=== PATIENT | female | born 1980 | race Caucasian/White ===

== ENCOUNTER 2017-06-20 13:34 | Emergency (ER) | payer OTHER ==
[2017-06-20] MEDS ORDERED: METOCLOPRAMIDE 5 MG/ML 2 ML VIAL IVP STA (13:53)
[2017-06-20] MEDS ORDERED: KETOROLAC 30 MG/ML 1 ML VIAL IVP STA (13:53)
[2017-06-20] MEDS ORDERED: SODIUM CHLORIDE 0.9% 1,000 ML IV STA (13:53)
[2017-06-20] MEDS ORDERED: diphenhydrAMINE 50 MG/ML 1 ML VIAL IVP STA (13:53)
[2017-06-20] MEDS ORDERED: MAG HYDROX/AL HYDROX/SIMETH 30 ML, HYOSCYAMINE ELIXIR 10 ML, CIMETIDINE HCL 300 MG, LID... PO STA ×4 (13:53)
--- NOTE | 2017-06-20 13:55 | ED ---
General Adult HPI - General Chief complaint: Headache Stated complaint: Headache, heart burn Time Seen by Provider: 06/20/17 13:46 Source: patient, RN notes reviewed Mode of arrival: ambulatory Limitations: no limitations - History of Present Illness Initial comments: Patient is a 37-year-old female who presents emergency room today with multiple complaints. Patient does admit that she woke up the migraine headache approximately 2:30 AM. Patient states is located in the back. Does admit to photosensitivity. Admits to an episode of nausea vomiting. patient states that the symptoms are consistent with her migraine headaches that she's had in the past. She states she's tried Fioricet along with [place] at home with no relief.States she's had increased acid reflux morning as well. Patient denies any recent fever, chills, shortness of breath, chest pain, back pain, abdominal pain, numbness or tingling, dysuria or hematuria, constipation or diarrhea, visual changes, or any other complaints. - Related Data Home Medications Medication Instructions Recorded Confirmed ARIPiprazole [Abilify] 5 mg PO HS 06/20/17 06/20/17 Butalb/APAP/Caff 50-325-40Mg 1 tab PO DAILY PRN 06/20/17 06/20/17 [Fioricet 50-325-40] Dextroamphetamine/Amphetamine 15 mg PO DAILY 06/20/17 06/20/17 [Adderall] HYDROcodone/APAP 10-325MG [[place] 1 tab PO BID PRN 06/20/17 06/20/17 10-325] Ibuprofen [Motrin] 800 mg PO Q8H PRN 06/20/17 06/20/17 Naproxen Sodium [Aleve] 220 mg PO DAILY PRN 06/20/17 06/20/17 buPROPion HCL [Wellbutrin XL] 300 mg PO HS 06/20/17 06/20/17 diphenhydrAMINE HCL [Benadryl] 25 mg PO DAILY PRN 06/20/17 06/20/17 Allergies Allergy/AdvReac Type Severity Reaction Status Date / Time amoxicillin Allergy Anaphylaxis Verified 06/20/17 14:34 Penicillins Allergy Anaphylaxis Verified 06/20/17 14:34 Review of Systems ROS Statement: Those systems with pertinent positive or pertinent negative responses have been documented in the HPI. ROS Other: All systems not noted in ROS Statement are negative. Past Medical History Additional Past Medical History / Comment(s): migraines History of Any Multi-Drug Resistant Organisms: None Reported Past Surgical History: Section Past Psychological History: Anxiety, Depression Smoking Status: Current every day smoker Past Alcohol Use History: Rare Past Drug Use History: None Reported General Exam - General Exam Comments Initial Comments: General: The patient is awake and alert, in no distress, and does not appear acutely ill. Eye: Pupils are equal, round and reactive to light, extra-ocular movements are intact. No nystagmus. There is normal conjunctiva bilaterally. No signs of icterus. Ears, nose, mouth and throat: There are moist mucous membranes and no oral lesions. Neck: The neck is supple, there is no tenderness or JVD. Cardiovascular: There is a regular rate and rhythm. No murmur, rub or gallop is appreciated. Respiratory: Lungs are clear to auscultation, respirations are non-labored, breath sounds are equal. No wheezes, stridor, rales, or rhonchi. Musculoskeletal: Normal ROM, no tenderness. Strength 5/5. Sensation intact. Pulses equal bilaterally 2+. Neurological: A&O x 3. CN II-XII intact, There are no obvious motor or sensory deficits. Coordination appears grossly intact. Speech is normal. Skin: Skin is warm and dry and no rashes or lesions are noted. Psychiatric: Cooperative, appropriate mood & affect, normal judgment. Limitations: no limitations Course Vital Signs 06/20/17 13:42 Temperature 98.1 F Pulse Rate 81 Respiratory 18 Rate Blood Pressure 141/92 O2 Sat by Pulse 98 Oximetry Medical Decision Making - Medical Decision Making patient reexamined at this time shows no signs of distress is feeling better. Will be discharged home. Disposition Clinical Impression: Migraine, Acid reflux Disposition: HOME SELF-CARE Condition: Good Instructions: Migraine Headache (ED) Additional Instructions: Please use medication as discussed. Please follow-up with family doctor in the next 2 days of symptoms have not improved. Please return to emergency room if the symptoms increase or worsen or for any other concerns. Referrals: Anmol Feldman MD [Primary Care Provider] - 1-2 days Time of Disposition: 15:02
[2017-06-20 15:13] VITALS: BP 131/82; PULSE 95; RESP 14; TEMP 98.3
== END 2017-06-20 15:18 | disposition home or self-care (01) ==
LOC: EC 13:34
DX: G43.909 Migraine, unspecified, not intractable, without status migrainosus (principal); K21.9 Gastro-esophageal reflux disease without esophagitis; F41.9 Anxiety disorder, unspecified; F32.9 Major depressive disorder, single episode, unspecified; F17.200 Nicotine dependence, unspecified, uncomplicated; Z79.899 Other long term (current) drug therapy; Z88.0 Allergy status to penicillin
CPT/HCPCS: 99283; 96374; 96375 ×2; 96361; J1200; J2765; J1885

== ENCOUNTER → 2017-08-20 | Outpatient (CLI) | payer OTHER ==
--- NOTE | 2017-08-20 16:20 | XR ---
EXAMINATION TYPE: XR cervical spine comp DATE OF EXAM: 08/20/2017 TECHNIQUE: Frontal, lateral, oblique, swimmers, and open mouth view of the cervical spine are obtaine d. HISTORY: R52 pain COMPARISON: Complete spine March 15, 2015 FINDINGS: The cervical spine is visualized in its entirety from C1 thru the top of T1 level, it rede monstrate straightened alignment without evidence of acute fracture or dislocation. The pre-vertebra l soft tissue appears within normal limits. The C1-C2 articulation is within normal limits on the op en mouth view. Vertebral body heights are maintained. There is persistent mild disc space narrowing with increasing mild anterior spurring C5-C6 level. The overlying soft tissue is unremarkable. The oblique images are within normal limits. IMPRESSION: Increasing degenerative changes C5-C6 level noted.
--- NOTE | 2017-08-20 16:22 | XR ---
EXAMINATION TYPE: XR thoracic spine 2V DATE OF EXAM: 08/20/2017 CLINICAL HISTORY: Mid back pain TECHNIQUE: Frontal, lateral, and swimmer's view of thoracic spine are obtained. COMPARISON: None. FINDINGS: Thoracic spine show stable slight levoconvex scoliotic curvature alignment without evidence of acute fracture or dislocation. Vertebral body heights and disc space heights are preserved. Ther e is mild multilevel anterior spurring. There is stable right lateral moderate spur T5-T6 level. Visu alized ribs are unremarkable bilaterally. IMPRESSION: Overall stable findings, mild multilevel spurring redemonstrated.
--- NOTE | 2017-08-20 16:23 | XR ---
EXAMINATION TYPE: XR lumbosacral spine min 4V DATE OF EXAM: 08/20/2017 CLINICAL HISTORY: Low back pain. TECHNIQUE: Frontal, lateral, and oblique images of the lumbar spine are obtained. COMPARISON: Complete spine 2 views March 15, 2015 FINDINGS: There are 5 lumbar type vertebral bodies redemonstrated. There is transitional L6 type ve rtebra sacralized on the left redemonstrated. Abnormal articulation at this level could cause pain si milar prior. Lateral images show slight grade 1 anterolisthesis of L5 on L6. No acute fracture or dis location is seen. Disc space narrowing L6 S1 level is present. Mild Facet arthropathy lower lumbar le vels is seen. Overlying soft tissue is unremarkable. IMPRESSION: Overall stable findings, transitional-type vertebra and degenerative changes lower lumbar levels redemonstrated.
== END | disposition home or self-care (01) ==
LOC: RADXRMAIN 15:30
PROVIDERS: ATTEND Internal Medicine
DX: M47.812 Spondylosis without myelopathy or radiculopathy, cervical region (principal); M46.04 Spinal enthesopathy, thoracic region; M47.816 Spondylosis without myelopathy or radiculopathy, lumbar region
CPT/HCPCS: 72050; 72070; 72110

== ENCOUNTER → 2017-12-26 | Outpatient (CLI) | payer OTHER ==
--- NOTE | 2017-12-26 19:17 | MR ---
EXAMINATION TYPE: MR lumbar spine wo con DATE OF EXAM: 12/26/2017 COMPARISON: X-ray dated 08/20/2017 HISTORY: Back pain TECHNIQUE: T1 and T2 axial and sagittal images of the lumbar spine are submitted. FINDINGS: There is no abnormal signal seen within the visualized spinal cord or paraspinal soft tissu es. There are 5 lumbar-type vertebrae and a transition L6 type vertebrae sacralized on the left. There is grade 1 anterolisthesis of L5 relative to the L6 transition segment. Degenerative disc disease at th is level noted. A tiny Schmorl's nodes are seen at multiple levels. At L1-2 there is no disc herniation or canal stenosis. No foraminal encroachment At L2-3 there is no disc herniation or canal stenosis. No foraminal encroachment At L3-4 there is no disc herniation or canal stenosis. No foraminal encroachment At L4-5 there is no disc herniation or canal stenosis. No foraminal encroachment. At L5-L6 level there is disc bulging greater laterally left with moderate left foraminal encroachment . Mild effacement of thecal sac. Severe facet arthropathy. Severe facet arthropathy. At the L6-S1 level there is degenerative disc disease. No canal stenosis or obvious foraminal encroac hment. IMPRESSION: 1. There appear to be 5 lumbar vertebral body and a additional 6th transition segment L6 vertebral se gment which is partially sacralized. Correlate with the numbering system utilized on this exam prior to any surgical intervention. 2. Disc bulging greater laterally to left with moderate left foraminal encroachment at the L5-L6 leve l with mild effacement of thecal sac. Grade 1 anterolisthesis likely related to severe facet arthropa thy.
== END | disposition home or self-care (01) ==
LOC: RADMRIMAIN 16:34
PROVIDERS: ATTEND Internal Medicine
DX: M51.26 Other intervertebral disc displacement, lumbar region (principal); M43.16 Spondylolisthesis, lumbar region
CPT/HCPCS: 72148

== ENCOUNTER → 2018-05-12 | Outpatient (CLI) | payer OTHER ==
--- NOTE | 2018-05-12 11:06 | MR ---
EXAMINATION TYPE: MR shoulder RT wo con DATE OF EXAM: 05/12/2018 COMPARISON: None HISTORY: Right shoulder pain TECHNIQUE: Multiplanar, multisequence imaging of the right shoulder is performed without contrast. FINDINGS: Rotator Cuff: There is abnormal increased signal within the rotator cuff, at the level of the inserti on there is discontinuity of the infraspinatus tendon at its insertion compatible with partial full-t hickness tear, tendinopathy, fluid signal is present in the subacromial subdeltoid bursa Acromioclavicular Joint: Arthropathy causes some minimal mass effect on the musculotendinous junction of supraspinatus Glenohumeral Joint: Maintained Labrum: The labrum appears grossly intact given limitation of non-arthrogram study. Biceps Tendon: The long head of biceps is in normal location within bicipital groove. Bone marrow signal: Small pseudocysts present in the humeral head Other: No additional significant abnormality is appreciated. IMPRESSION: Partial full-thickness tear the rotator cuff. Additional findings above.
== END | disposition home or self-care (01) ==
LOC: RADMRIMAIN 09:07
PROVIDERS: ATTEND Internal Medicine
DX: M75.111 Incomplete rotator cuff tear or rupture of right shoulder, not specified as traumatic (principal); M19.011 Primary osteoarthritis, right shoulder; M75.81 Other shoulder lesions, right shoulder

== ENCOUNTER → 2018-05-14 | Outpatient (CLI) | payer OTHER ==
--- NOTE | 2018-05-15 14:43 | MR ---
MR bilateral hips HISTORY: Bilateral hip pain Multiplanar multisequence imaging obtained through the pelvis with small [id number] images obtaine d through the left hip and right hip Lumbar MRI 12/29/2017 Right hip shows a small joint effusion. Articular cartilage signal is maintained. There is no signifi cant hypertrophic change. No evident labral tear. There is some increased signal at the insertion of the gluteus medius tendon on the greater trochanter suggestive of partial tear. Fluid signal is also present at the origin of the hamstring conjoined tendon suggestive of strain or partial tear. Increas ed signal is present along the quadratus femoris muscle on T2-weighted sequences which could be indic ative of ischiofemoral impingement. Left hip shows some increased signal along the origin of the conjoined tendon of the hamstring muscul ature suggestive of possible partial tear or strain. There is a small effusion. Articular cartilage s ignal is maintained. There is some increased signal on T2-weighted sequences along the quadratus femo ris muscle suggesting ischiofemoral impingement. Gluteus medius tendon shows a more normal appearance on the left. Uterus and adnexal structures are remarkable for multiple follicles within the ovaries. No significan t free fluid in pelvis. Suspect there is a synovial cyst towards the lumbosacral junction on the righ t, axial image 26 of T2 fat-suppressed images measuring approximately 9 to 10 mm showing some mass ef fect on the lateral aspect of the thecal sac, similar findings noted on lumbar MRI. IMPRESSION: Correlate for ischial femoral impingement as described bilaterally. Findings suggest part ial tear or strain at the origins of the hamstring musculature, right gluteus medius tendon. Degenera tive disc disease and facet arthropathy, synovial cyst shows some possible mass effect on the thecal sac, similar findings seen on prior lumbar MRI.
== END | disposition home or self-care (01) ==
LOC: RADMRIMAIN 13:19
PROVIDERS: ATTEND Internal Medicine
DX: M25.852 Other specified joint disorders, left hip (principal); M25.851 Other specified joint disorders, right hip

== ENCOUNTER 2018-05-18 08:47 | Emergency (ER) | payer OTHER ==
[2018-05-18 08:56] VITALS: RESP 18
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
--- NOTE | 2018-05-18 11:30 | XR ---
EXAMINATION TYPE: XR chest 2V, XR ribs RT DATE OF EXAM: 05/18/2018 COMPARISON: NONE HISTORY: Chest pain TECHNIQUE: Frontal and lateral views of the chest are obtained. 4 views of the right-sided ribs are also submitted. FINDINGS: There is no focal air space opacity. No evidence for pneumothorax. No pleural effusion. The cardiac silhouette size is within normal limits. The osseous structures are grossly intact. Right-sided ribs are grossly intact. IMPRESSION: 1. No acute cardiopulmonary process.
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
[2018-05-18 12:05] VITALS: BP 149/98; PULSE 89; TEMP 97.1
== END 2018-05-18 12:04 | disposition home or self-care (01) ==
LOC: EC 08:47
DX: S51.012A Laceration without foreign body of left elbow, initial encounter (principal); S20.211A Contusion of right front wall of thorax, initial encounter; S60.222A Contusion of left hand, initial encounter; S50.11XA Contusion of right forearm, initial encounter; S00.81XA Abrasion of other part of head, initial encounter; S80.212A Abrasion, left knee, initial encounter; F41.9 Anxiety disorder, unspecified; F32.9 Major depressive disorder, single episode, unspecified; Z79.899 Other long term (current) drug therapy; Z88.0 Allergy status to penicillin; V53.5XXA Driver of pick-up truck or van injured in collision with car, pick-up truck or van in traffic accident, initial encounter
CPT/HCPCS: 70450; 71046; 72125; 99284

== ENCOUNTER 2018-05-25 10:19 | Emergency (ER) | payer OTHER ==
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
--- NOTE | 2018-05-25 11:10 | XR ---
EXAMINATION TYPE: XR ribs RT w pa chest xray DATE OF EXAM: 05/18/2018 COMPARISON: NONE TECHNIQUE: PA and lateral views submitted. HISTORY: Pain FINDINGS: The lungs are clear and there is no pneumothorax, pleural effusion, or focal pneumonia. No evidence of acute displaced rib fracture. IMPRESSION: 1. No acute process.
[2018-05-25 11:23] VITALS: BP 148/95; PULSE 82; RESP 20; TEMP 98.3
== END 2018-05-25 12:07 | disposition home or self-care (01) ==
LOC: EC 10:19
DX: S20.211D Contusion of right front wall of thorax, subsequent encounter (principal); F32.9 Major depressive disorder, single episode, unspecified; F41.9 Anxiety disorder, unspecified; F17.200 Nicotine dependence, unspecified, uncomplicated; Z79.899 Other long term (current) drug therapy; Z88.0 Allergy status to penicillin; V49.9XXD Car occupant (driver) (passenger) injured in unspecified traffic accident, subsequent encounter
CPT/HCPCS: 99284

== ENCOUNTER 2019-02-06 09:59 | Observation (INO) | payer OTHER ==
[2019-02-06] MEDS ORDERED: ACETAMINOPHEN TAB 500 MG TAB PO STA (10:47)
--- NOTE | 2019-02-06 10:51 | ED ---
General Adult HPI - General Chief complaint: Extremity Problem,Nontraumatic Stated complaint: Leg redness Time Seen by Provider: 02/06/19 10:20 Source: patient, RN notes reviewed Mode of arrival: ambulatory Limitations: no limitations - History of Present Illness Initial comments: Patient is a pleasant 38-year-old female presenting to the emergency Department with complaints of left leg redness. Patient noticed symptoms just yesterday. Patient has been fatigued for the past couple of days. Patient did not notice any fevers. No history of similar symptoms previously. Patient states 3 days ago she did have some discomfort of her right anterior chest. This has resolved and is not present at this time. No dyspnea at any time. No significant cough. Patient does complain of headache. Patient denies any calf pain or leg swelling. - Related Data Home Medications Medication Instructions Recorded Confirmed ARIPiprazole [Abilify] 5 mg PO HS 06/20/17 02/06/19 HYDROcodone/APAP 10-325MG [[place] 1 tab PO TID PRN 06/20/17 02/06/19 10-325] Ibuprofen [Motrin] 800 mg PO Q8H PRN 06/20/17 02/06/19 buPROPion HCL [Wellbutrin XL] 300 mg PO HS 06/20/17 02/06/19 Butalb/APAP/Caff 50-325-40Mg 1 tab PO Q4H PRN 02/06/19 02/06/19 [Fioricet 50-325-40] Dextroamphetamine/Amphetamine 20 mg PO QAM 02/06/19 02/06/19 [Adderall Xr] Allergies Allergy/AdvReac Type Severity Reaction Status Date / Time amoxicillin Allergy Anaphylaxis Verified 02/06/19 10:29 Penicillins Allergy Anaphylaxis Verified 02/06/19 10:29 Review of Systems ROS Statement: Those systems with pertinent positive or pertinent negative responses have been documented in the HPI. ROS Other: All systems not noted in ROS Statement are negative. Constitutional: Reports: as per HPI Eyes: Denies: eye pain ENT: Denies: ear pain Respiratory: Denies: cough, dyspnea Cardiovascular: Reports: as per HPI Endocrine: Reports: fatigue Gastrointestinal: Denies: abdominal pain Genitourinary: Denies: dysuria Musculoskeletal: Denies: back pain Skin: Reports: as per HPI, rash Neurological: Reports: headache. Denies: confusion Past Medical History Additional Past Medical History / Comment(s): migraines History of Any Multi-Drug Resistant Organisms: None Reported Past Surgical History: Section Past Psychological History: Anxiety, Depression Smoking Status: Current every day smoker Past Alcohol Use History: Occasional Past Drug Use History: Marijuana General Exam Limitations: no limitations General appearance: alert, in no apparent distress Head exam: Present: atraumatic Eye exam: Present: normal appearance, PERRL, EOMI ENT exam: Present: normal oropharynx Neck exam: Present: normal inspection. Absent: tenderness, meningismus Respiratory exam: Present: normal lung sounds bilaterally. Absent: chest wall tenderness Cardiovascular Exam: Present: regular rate, normal rhythm Expanded Peripheral pulses: 2+: Dorsalis Pedis (R), Dorsalis Pedis (L) GI/Abdominal exam: Present: soft. Absent: tenderness Extremities exam: Absent: pedal edema, calf tenderness Neurological exam: Present: alert Psychiatric exam: Present: normal affect, normal mood Skin exam: Present: other (Patient does have skin breakdown left lateral foot near the heel. There is erythema of the entire dorsal foot and anterior brooks extending up to the knee.) Course Vital Signs 02/06/19 02/06/19 02/06/19 10:03 10:42 11:00 Temperature 101.3 F H Pulse Rate 114 H 113 H Respiratory 18 16 Rate Blood Pressure 118/83 134/90 134/90 O2 Sat by Pulse 100 99 97 Oximetry 02/06/19 02/06/19 02/06/19 11:30 11:51 12:00 Temperature 100.2 F H Pulse Rate 108 H 109 H Respiratory 18 18 Rate Blood Pressure 136/90 121/84 O2 Sat by Pulse 97 96 Oximetry 02/06/19 12:30 Temperature Pulse Rate 105 H Respiratory 16 Rate Blood Pressure 127/89 O2 Sat by Pulse 98 Oximetry EKG Findings - EKG Comments: EKG Findings:: Sinus tachycardia 114. DC 116. QRS 78. QT 326. QTc 446. Normal axis. Normal QRS. No acute ST change. Medical Decision Making - Medical Decision Making Patient reevaluated and resting comfortably in bed. Patient and family updated on results and plan. Case was discussed in detail with Dr. Hwang, covering for Dr. Jefferson mcrae, who will admit. - Lab Data Result diagrams: 02/06/19 10:59 02/06/19 10:59 Lab Results 02/06/19 02/06/19 02/06/19 Range/Units 10:59 10:59 10:59 WBC 16.1 H (3.8-10.6) k/uL RBC 5.15 (3.80-5.40) m/uL Hgb 15.0 (11.4-16.0) gm/dL Hct 43.4 (34.0-46.0) % MCV 84.2 (80.0-100.0) fL MCH 29.1 (25.0-35.0) pg MCHC 34.6 (31.0-37.0) g/dL RDW 15.8 H (11.5-15.5) % Plt Count 151 (150-450) k/uL Neutrophils % 90 % Lymphocytes % 5 % Monocytes % 2 % Eosinophils % 2 % Basophils % 0 % Neutrophils # 14.6 H (1.3-7.7) k/uL Lymphocytes # 0.8 L (1.0-4.8) k/uL Monocytes # 0.4 (0-1.0) k/uL Eosinophils # 0.3 (0-0.7) k/uL Basophils # 0.1 (0-0.2) k/uL PT (9.0-12.0) sec INR (<1.2) APTT (22.0-30.0) sec Sodium 137 (137-145) mmol/L Potassium 3.6 (3.5-5.1) mmol/L Chloride 103 (98-107) mmol/L Carbon Dioxide 22 (22-30) mmol/L Anion Gap 12 mmol/L BUN 10 (7-17) mg/dL Creatinine 0.94 (0.52-1.04) mg/dL Est GFR (CKD-EPI)AfAm 89 (>60 ml/min/1.73 sqM) Est GFR (CKD-EPI)NonAf 77 (>60 ml/min/1.73 sqM) Glucose 105 H (74-99) mg/dL Plasma Lactic Acid Sonny 1.4 (0.7-2.0) mmol/L Calcium 8.9 (8.4-10.2) mg/dL Total Bilirubin 1.1 (0.2-1.3) mg/dL AST 27 (14-36) U/L ALT 41 (9-52) U/L Alkaline Phosphatase 80 (38-126) U/L Creatine Kinase 56 (30-135) U/L Troponin I (0.000-0.034) ng/mL Total Protein 6.9 (6.3-8.2) g/dL Albumin 3.9 (3.5-5.0) g/dL 02/06/19 02/06/19 Range/Units 10:59 10:59 WBC (3.8-10.6) k/uL RBC (3.80-5.40) m/uL Hgb (11.4-16.0) gm/dL Hct (34.0-46.0) % MCV (80.0-100.0) fL MCH (25.0-35.0) pg MCHC (31.0-37.0) g/dL RDW (11.5-15.5) % Plt Count (150-450) k/uL Neutrophils % % Lymphocytes % % Monocytes % % Eosinophils % % Basophils % % Neutrophils # (1.3-7.7) k/uL Lymphocytes # (1.0-4.8) k/uL Monocytes # (0-1.0) k/uL Eosinophils # (0-0.7) k/uL Basophils # (0-0.2) k/uL PT 11.3 (9.0-12.0) sec INR 1.1 (<1.2) APTT 30.3 H (22.0-30.0) sec Sodium (137-145) mmol/L Potassium (3.5-5.1) mmol/L Chloride (98-107) mmol/L Carbon Dioxide (22-30) mmol/L Anion Gap mmol/L BUN (7-17) mg/dL Creatinine (0.52-1.04) mg/dL Est GFR (CKD-EPI)AfAm (>60 ml/min/1.73 sqM) Est GFR (CKD-EPI)NonAf (>60 ml/min/1.73 sqM) Glucose (74-99) mg/dL Plasma Lactic Acid Sonny (0.7-2.0) mmol/L Calcium (8.4-10.2) mg/dL Total Bilirubin (0.2-1.3) mg/dL AST (14-36) U/L ALT (9-52) U/L Alkaline Phosphatase (38-126) U/L Creatine Kinase (30-135) U/L Troponin I <0.012 (0.000-0.034) ng/mL Total Protein (6.3-8.2) g/dL Albumin (3.5-5.0) g/dL - Radiology Data Radiology results: image reviewed (Chest x-ray shows no acute process. X-ray of the left tib-fib and left foot did not reveal no acute process.) Critical Care Time Critical Care Time: Yes Total Critical Care Time: 33 Disposition Clinical Impression: Sepsis, Cellulitis Disposition: ADMITTED IP TO THIS HOSP Is patient prescribed a controlled substance at d/c from ED?: No Referrals: Anmol Feldman MD [Primary Care Provider] - 1-2 days Decision Time: 12:59
[2019-02-06] MEDS: SODIUM CHLORIDE 0.9% 500 ML 500 ML IV SCH ×4 (10:55→13:08)
[2019-02-06 11:26] LABS: Basophils # (A) 0.1 k/uL (0-0.2); Basophils % (A) 0 %; Eosinophils # (A) 0.3 k/uL (0-0.7); Eosinophils % (A) 2 %; HCT 43.4 % (34.0-46.0); Lymphocytes # (A) 0.8 k/uL (1.0-4.8); Lymphocytes % (A) 5 %; MCH 29.1 pg (25.0-35.0); MCHC 34.6 g/dL (31.0-37.0); MCV 84.2 fL (80.0-100.0); Mean Platelet Volume 8.9; Monocytes # (A) 0.4 k/uL (0-1.0); Monocytes % (A) 2 %; Neutrophils # (A) 14.6 k/uL (1.3-7.7); Neutrophils % (A) 90 %; Platelet Count 151 k/uL (150-450); RBC 5.15 m/uL (3.80-5.40); RDW 15.8 % (11.5-15.5); WBC 16.1 k/uL (3.8-10.6)
--- NOTE | 2019-02-06 11:28 | XR ---
EXAMINATION TYPE: XR chest 2V DATE OF EXAM: 02/06/2019 HISTORY: Fever. REFERENCE: Previous study dated 05/25/2018. FINDINGS: Lungs remain clear. Pleural spaces are clear. The heart is not enlarged. IMPRESSION: NO ACUTE INTRATHORACIC ABNORMALITY.
[2019-02-06 11:33] LABS: Albumin 3.9 g/dL (3.5-5.0); Total Protein 6.9 g/dL (6.3-8.2)
[2019-02-06 11:34] LABS: Calcium 8.9 mg/dL (8.4-10.2); Potassium 3.6 mmol/L (3.5-5.1); Total Bilirubin 1.1 mg/dL (0.2-1.3)
[2019-02-06 11:56] LABS: INR 1.1 (<1.2)
[2019-02-06 11:57] LABS: Partial Thromboplastin Time 30.3 sec (22.0-30.0); Prothrombin Time 11.3 sec (9.0-12.0)
--- NOTE | 2019-02-06 12:53 | XR ---
EXAMINATION TYPE: XR foot complete LT , 3 VIEWS DATE OF EXAM ORDERED: 02/06/2019 HISTORY: Left lower extremity swelling. COMPARISON: None. FINDINGS: There is a small calcaneal spur. There is a mild hallux valgus deformity. No fracture, dis location or other acute osseous lesion is seen. IMPRESSION: 1. NO ACUTE OSSEOUS LESION. 2. DEGENERATIVE CHANGE.
--- NOTE | 2019-02-06 12:53 | XR ---
EXAMINATION TYPE: XR tibia fibula LT , 4 VIEWS DATE OF EXAM ORDERED: 02/06/2019 HISTORY: Pain. COMPARISON: None. FINDINGS: No fracture, dislocation or other acute osseous lesion is seen. Note is made of a small, p lantar calcaneal spur. IMPRESSION: NO ACUTE OSSEOUS LESION.
[2019-02-06] MEDS ORDERED: VANCOMYCIN IV PER PHARMACY 1 EACH MISC MISCELLANE PRN (12:59)
[2019-02-06] MEDS ORDERED: CLINDAMYCIN 600 MG in DEXTROSE 5% IN WATER 50 ML IVPB STA ×2 (12:59)
[2019-02-06] MEDS ORDERED: ACETAMINOPHEN TAB 325 MG TAB PO PRN (13:02)
[2019-02-06] MEDS ORDERED: NALOXONE 0.4 MG/ML 1 ML VIAL IV PRN (13:02)
[2019-02-06] MEDS ORDERED: VANCOMYCIN 2,000 MG in SODIUM CHLORIDE 0.9% 500 ML 500 ML IVPB STA (13:04)
[2019-02-06 13:15] LABS: Appearance,Urine Clear (Clear); Bacteria,Urine Moderate /hpf; Bilirubin,Urine Negative (Negative); Blood,Urine Trace (Negative); Color,Urine Yellow; Glucose,Urine (UA) Negative (Negative); Ketones,Urine Negative (Negative); Leukocyte Esterase,Urine Negative (Negative); Mucus,Urine Rare /hpf; Nitrite,Urine Negative (Negative); Protein,Urine Trace (Negative); RBC,Urine 2 /hpf (0-5); Specific Gravity,Urine 1.011 (1.001-1.035); Squamous Epithelial Cell,Urine 3 /hpf (0-4); Urobilinogen,Urine <2.0 mg/dL (<2.0); WBC,Urine 1 /hpf (0-5)
[2019-02-06] MEDS: SODIUM CHLORIDE 0.9% 1,000 ML IV SCH ×2 (13:29→21:03)
--- NOTE | 2019-02-06 15:01 | P.HPIM ---
History of Present Illness H&P Date: 02/06/19 Chief Complaint: Left leg redness Ma. Rouse is a 38-year-old female with a past medical history of migraine headaches, depression with anxiety coming into the hospital with a chief complaint of left leg redness. Patient states that since evening she has been feeling fatigued and trying to sleep it off. But yesterday she started to have fevers and also noticed that the left leg redness has been getting worse and came into the hospital. Patient also complains of some retrosternal chest pain that has resolved by itself at this point of time. Patient denies having any cough or difficulty in breathing. She denies having any recent travel. She denies having any calf pain. Patient does have cracks in her feet. She states that she has athletes foot. She has history of chronic migraines and states that the fioricet that she is taking is not helping her for the headaches. In the emergency department patient was found to have tachycardia tachypnea with a fever. She had a chest x-ray done that was negative for any acute osseous process. X-ray of the left tibia and fibula no fracture dislocation. Patient has labs drawn which was showing elevated white count. She has been started on vancomycin and clindamycin and admitted to the hospital for further management. Review of Systems REVIEW OF SYSTEMS: PSYCH: Anxiety and depression and takes medications NEURO:No c/o weakness of the extremties, No facial droop, No speech abnormalities. VASCULAR: Peripheral nervous system within the normal limits no edema HEMATOLOGIC: No history of easy bleeding and bruising . No recent infections . RESPIRATORY: No cough, No SOB, No chest discomfort. IMMUNE: No infections INTEGUMENT: no rashes OPHTHALMOLOGIC: No blurry vision and no eye discharge : No dysuria or hematuria [employer]: No bleeding PV CARDIAC: No chest pain , shortness of breath , paroxysmal nocturnal dyspnea MUSCULOSKELETAL : Fatigue. No joint swelling. GI: No abdominal pain, Nausea or vomiting. No constipation or diarrhea. Past Medical History Additional Past Medical History / Comment(s): migraines History of Any Multi-Drug Resistant Organisms: None Reported Past Surgical History: Section Past Psychological History: Anxiety, Depression Smoking Status: Current every day smoker Past Alcohol Use History: Occasional Past Drug Use History: Marijuana Medications and Allergies Home Medications Medication Instructions Recorded Confirmed Type ARIPiprazole [Abilify] 5 mg PO HS 06/20/17 02/06/19 History HYDROcodone/APAP 10-325MG [[place] 1 tab PO TID PRN 06/20/17 02/06/19 History 10-325] Ibuprofen [Motrin] 800 mg PO Q8H PRN 06/20/17 02/06/19 History buPROPion HCL [Wellbutrin XL] 300 mg PO HS 06/20/17 02/06/19 History Butalb/APAP/Caff 50-325-40Mg 1 tab PO Q4H PRN 02/06/19 02/06/19 History [Fioricet 50-325-40] Dextroamphetamine/Amphetamine 20 mg PO QAM 02/06/19 02/06/19 History [Adderall Xr] Allergies Allergy/AdvReac Type Severity Reaction Status Date / Time amoxicillin Allergy Anaphylaxis Verified 02/06/19 10:29 Penicillins Allergy Anaphylaxis Verified 02/06/19 10:29 Physical Exam Vitals: Vital Signs Temp Pulse Pulse Resp BP BP Pulse Ox 02/06/19 14:24 97.9 F 100 18 105/74 98 02/06/19 13:30 99 F 87 18 123/91 97 02/06/19 12:30 105 H 16 127/89 98 02/06/19 12:00 109 H 18 121/84 96 02/06/19 11:51 100.2 F H 02/06/19 11:30 108 H 18 136/90 97 02/06/19 11:00 113 H 16 134/90 97 02/06/19 10:42 134/90 99 02/06/19 10:03 101.3 F H 114 H 18 118/83 100 Intake and Output 02/05/19 02/06/19 02/06/19 22:59 06:59 14:59 Other: Weight 108.862 kg GEN. APPEARANCE: alert, in no apparent distress HEAD EXAM: atraumatic, normocephalic, normal inspection EYE EXAM: normal appearance, PERRL, EOMI. Absent: scleral icterus, conjunctival injection, periorbital swelling ENT EXAM: normal exam, mucous membranes moist NECK EXAM: normal inspection. Absent: tenderness, meningismus, full ROM, lymphadenopathy RESPIRATORY EXAM: normal lung sounds bilaterally. Absent: respiratory distress, wheezes, rales, rhonchi, stridor CARDIOVASCULAR EXAM: regular rate, tachycardia, normal heart sounds. Absent: systolic murmur, diastolic murmur, rubs, gallop, clicks GI/ABDOMINAL EXAM: soft, normal bowel sounds. Absent: distended, tenderness, guarding, rebound, rigid EXTREMITIES EXAM: Left lower extremity - skin breakdown on the left lateral foot. Area of redness on the dorsal surface of the foot and the anterior brooks- marked with ink NEUROLOGICAL EXAM: alert, oriented X3, no focal deficits PSYCHIATRIC EXAM: normal affect, normal mood SKIN EXAM: warm, dry, intact, normal color. Absent: rash Results CBC & Chem 7: 02/06/19 10:59 02/06/19 10:59 Labs: Abnormal Lab Results - Last 24 Hours (Table) 02/06/19 02/06/19 02/06/19 Range/Units 10:59 10:59 10:59 WBC 16.1 H (3.8-10.6) k/uL RDW 15.8 H (11.5-15.5) % Neutrophils # 14.6 H (1.3-7.7) k/uL Lymphocytes # 0.8 L (1.0-4.8) k/uL APTT 30.3 H (22.0-30.0) sec Glucose 105 H (74-99) mg/dL Urine Protein (Negative) Urine Blood (Negative) Urine Bacteria (None) /hpf Urine Mucus (None) /hpf 02/06/19 Range/Units 13:04 WBC (3.8-10.6) k/uL RDW (11.5-15.5) % Neutrophils # (1.3-7.7) k/uL Lymphocytes # (1.0-4.8) k/uL APTT (22.0-30.0) sec Glucose (74-99) mg/dL Urine Protein Trace H (Negative) Urine Blood Trace H (Negative) Urine Bacteria Moderate H (None) /hpf Urine Mucus Rare H (None) /hpf Thrombosis Risk Factor Assmnt - Choose All That Apply Any of the Below Risk Factors Present?: No Other Risk Factors: No Other congenital or acquired thrombophilia - If yes, enter type in comment: No Thrombosis Risk Factor Assessment Level: Very Low Risk Assessment and Plan Assessment: ASSESSMENT Sepsis secondary to left leg cellulitis Left leg cellulitis Anxiety with depression Migraine headaches PLAN: Patient has been started on vancomycin and clindamycin as she is ALLERGIC to penicillins. Blood cultures have been obtained prior to antibiotic therapy. Motrin for her headaches. Continue with IV fluids. Further recommendations to follow depending on the progress of the patient.
[2019-02-06] MEDS: IBUPROFEN 800 MG TAB PO PRN (16:49)
[2019-02-06] MEDS: ARIPiprazole 5 MG TAB PO SCH (20:07)
[2019-02-06] MEDS: buPROPion XL 300 MG TAB.ER.24H PO SCH (20:07)
[2019-02-06] MEDS: CLINDAMYCIN 600 MG in DEXTROSE 5% IN WATER 50 ML IVPB SCH ×2 (21:03)
[2019-02-06] MEDS: ENOXAPARIN 40 MG/0.4 ML SYRINGE SQ SCH (23:57)
[2019-02-07] MEDS ORDERED: KETOROLAC 30 MG/ML 1 ML VIAL IVP STA (00:44)
[2019-02-07] MEDS ORDERED: DEXAMETHASONE SOD PHOSPHATE 10 MG/ML 1 ML VIAL IV STA (00:45)
[2019-02-07] MEDS ORDERED: diphenhydrAMINE 50 MG/ML 1 ML VIAL IVP STA (00:45)
[2019-02-07] MEDS: CLINDAMYCIN 600 MG in DEXTROSE 5% IN WATER 50 ML IVPB SCH ×8 (00:54→20:27)
[2019-02-07] MEDS: ENOXAPARIN 40 MG/0.4 ML SYRINGE SQ SCH ×2 (00:59→20:32)
[2019-02-07] MEDS: VANCOMYCIN 2,000 MG in SODIUM CHLORIDE 0.9% 500 ML 500 ML IVPB SCH ×2 (02:12→14:25)
[2019-02-07] MEDS: SODIUM CHLORIDE 0.9% 1,000 ML IV SCH ×2 (05:20→13:13)
[2019-02-07] MEDS: IBUPROFEN 800 MG TAB PO PRN (08:12)
[2019-02-07 08:26] LABS: Basophils % (A) 0 %; Eosinophils % (A) 0 %; HCT 43.3 % (34.0-46.0); Lymphocytes # (A) 0.4 k/uL (1.0-4.8); Lymphocytes % (A) 3 %; MCH 27.9 pg (25.0-35.0); MCHC 32.3 g/dL (31.0-37.0); MCV 86.4 fL (80.0-100.0); Mean Platelet Volume 8.2; Monocytes # (A) 0.2 k/uL (0-1.0); Monocytes % (A) 1 %; Neutrophils # (A) 9.8 k/uL (1.3-7.7); Neutrophils % (A) 94 %; Platelet Count 153 k/uL (150-450); RBC 5.02 m/uL (3.80-5.40); RDW 13.9 % (11.5-15.5); WBC 10.4 k/uL (3.8-10.6)
[2019-02-07 08:36] LABS: African American GFR (CKD) >90 (>60 ml/min/1.73 sqM); Anion Gap 11 mmol/L; Blood Urea Nitrogen 13 mg/dL (7-17); Calcium 8.8 mg/dL (8.4-10.2); Carbon Dioxide 21 mmol/L (22-30); Chloride 108 mmol/L (98-107); Glucose 203 mg/dL (74-99); Potassium 4.1 mmol/L (3.5-5.1); Sodium 140 mmol/L (137-145)
[2019-02-07] MEDS: Dextroamphetamine/Amphetamine [Adderall Xr] PO SCH (09:50)
--- NOTE | 2019-02-07 13:15 | P.PN ---
Subjective Progress Note Date: 02/07/19 Principal diagnosis: Sepsis due to left lower extremity cellulitis Ms. Rouse is a 38-year-old female with a past medical history of migraine headaches and depression with anxiety coming in for left leg redness. Patient was found to have tachycardia and tachypnea and a white count. She was septic at the time of admission. She is currently being treated for left lower extremi ty cellulitis. On 02/07/2019- patient is comfortably lying in bed. She reports that her redness and swelling has improved. Patient denies any calf tenderness. Her headache has improved and she feels much better today. Patient denies having any fevers or chills. No chest pain or cough or difficulty in breathing. No abdominal pain nausea vomiting or diarrhea. No dysuria or hematuria. Patient's medications and labs have been reviewed. Active Medications Acetaminophen (Tylenol Tab) 650 mg PO Q6HR PRN PRN Reason: Mild Pain or Fever > 100.5 Aripiprazole (Abilify) 5 mg PO [facility] Last Admin: 02/06/19 20:07 Dose: 5 mg Documented by: Bupropion HCl (Wellbutrin Xl) 300 mg PO [facility] Last Admin: 02/06/19 20:07 Dose: 300 mg Documented by: Enoxaparin Sodium (Lovenox) 40 mg SQ Q24H [facility] [place] Last Admin: 02/07/19 00:59 Dose: Not Given Documented by: Clindamycin Phosphate 600 mg/ (Dextrose/Water) 54 mls @ 50 mls/hr IVPB Q6H [facility] [place] Last Admin: 02/07/19 13:08 Dose: 50 mls/hr Documented by: Sodium Chloride (Saline 0.9%) 1,000 mls @ 10 mls/hr IV .Q24H [facility] [place] Last Admin: 02/07/19 05:20 Dose: 125 mls/hr Documented by: Vancomycin HCl 2,000 mg/ (Sodium Chloride) 500 mls @ 167 mls/hr IVPB Q12H [facility] [place] Last Admin: 02/07/19 02:12 Dose: 167 mls/hr Documented by: Ibuprofen (Motrin) 800 mg PO Q8H PRN PRN Reason: Pain Last Admin: 02/07/19 08:12 Dose: 800 mg Documented by: Miscellaneous Information (Vancomycin Trough Due) 0 each MISCELLANE DIRECTED ONE Stop: 02/08/19 13:01 Naloxone HCl (Narcan) 0.2 mg IV Q2M PRN PRN Reason: Opioid Reversal Dextroamphetamine/Amphetamine [ Adderall Xr] 20 mg PO QAM [facility] [place] Last Admin: 02/07/19 09:50 Dose: Not Given Documented by: Objective - Vital Signs Vital signs: Vital Signs Temp 98.6 F 02/07/19 05:30 Pulse 98 02/07/19 05:30 Resp 18 02/07/19 05:30 BP 124/73 02/07/19 05:30 Pulse Ox 99 02/07/19 05:30 Intake & Output 02/06/19 02/07/19 02/07/19 18:59 06:59 18:59 Intake Total 300 Balance 300 Weight 108.862 kg Intake: Oral 300 Other: Voiding Method Toilet # Voids 2 - Exam GEN. APPEARANCE: alert, in no apparent distress RESPIRATORY EXAM: Bilateral breath sounds are positive. No wheeze or crackles. CARDIOVASCULAR EXAM: S1 and S2 heard. GI/ABDOMINAL EXAM: Abdomen is soft nontender. Normal bowel sounds. EXTREMITIES EXAM: Left lower extremity -Area of redness on the dorsal surface of the foot and the anterior brooks - reduced compared to yesterday NEUROLOGICAL EXAM: alert, oriented X3, no focal deficits PSYCHIATRIC EXAM: normal affect, normal mood - Labs CBC & Chem 7: 02/07/19 07:44 02/07/19 07:44 Labs: Abnormal Lab Results - Last 24 Hours (Table) 02/06/19 02/07/19 02/07/19 Range/Units 13:04 07:44 07:44 Neutrophils # 9.8 H (1.3-7.7) k/uL Lymphocytes # 0.4 L (1.0-4.8) k/uL Chloride 108 H (98-107) mmol/L Carbon Dioxide 21 L (22-30) mmol/L Glucose 203 H (74-99) mg/dL Urine Protein Trace H (Negative) Urine Blood Trace H (Negative) Urine Bacteria Moderate H (None) /hpf Urine Mucus Rare H (None) /hpf Microbiology - Last 24 Hours (Table) 02/06/19 13:04 Urine Culture - Preliminary Urine,Voided Assessment and Plan Assessment: ASSESSMENT Sepsis secondary to left leg cellulitis Left leg cellulitis Anxiety with depression Migraine headaches PLAN: Patient will be continued on vancomycin and clindamycin as she is ALLERGIC to penicillins. Blood cultures have been obtained prior to antibiotic therapy- pending. Continue with IV fluids. Patient states that she wants to go home to take care of her kids. Explained to her that she was septic at the time of admission and we are still waiting for the blood cultures to be back. She understands the situation and is willing to stay overnight. We will follow up on the blood cultures and possible discharge tomorrow.Further recommendations to follow depending on the progress of the patient.
[2019-02-07 14:22] VITALS: RESP 16
[2019-02-07] MEDS ORDERED: FLUCONAZOLE 100 MG TAB PO ONE (14:27)
[2019-02-07] MEDS: buPROPion XL 300 MG TAB.ER.24H PO SCH (20:28)
[2019-02-07] MEDS: ARIPiprazole 5 MG TAB PO SCH (20:28)
[2019-02-08] MEDS: CLINDAMYCIN 600 MG in DEXTROSE 5% IN WATER 50 ML IVPB SCH ×4 (01:19→07:40)
[2019-02-08] MEDS: IBUPROFEN 800 MG TAB PO PRN (01:28)
[2019-02-08] MEDS: VANCOMYCIN 2,000 MG in SODIUM CHLORIDE 0.9% 500 ML 500 ML IVPB SCH (02:45)
[2019-02-08 05:19] VITALS: BP 114/76; PULSE 92; TEMP 98.2
[2019-02-08] MEDS: Dextroamphetamine/Amphetamine [Adderall Xr] PO SCH (07:41)
[2019-02-08 09:52] LABS: African American GFR (CKD) >90 (>60 ml/min/1.73 sqM); Anion Gap 11 mmol/L; Blood Urea Nitrogen 16 mg/dL (7-17); Calcium 8.8 mg/dL (8.4-10.2); Carbon Dioxide 22 mmol/L (22-30); Chloride 108 mmol/L (98-107); Glucose 244 mg/dL (74-99); Potassium 3.9 mmol/L (3.5-5.1); Sodium 141 mmol/L (137-145)
[2019-02-08 10:46] LABS: HCT 36.9 % (34.0-46.0); MCH 28.2 pg (25.0-35.0); MCHC 32.5 g/dL (31.0-37.0); MCV 86.9 fL (80.0-100.0); Mean Platelet Volume 9.2; Platelet Count 179 k/uL (150-450); RBC 4.25 m/uL (3.80-5.40); RDW 14.1 % (11.5-15.5); WBC 13.3 k/uL (3.8-10.6)
[2019-02-08] MEDS ORDERED: CALCIUM CARBONATE 500 MG CHEWABLE PO PRN (10:54)
--- NOTE | 2019-02-08 11:49 | P.DS ---
Providers Date of admission: 02/06/19 13:12 Expected date of discharge: 02/08/19 Attending physician: Omaira Hayes Primary care physician: Francia Robison [facility] Course: Mr. Rouse is a 38-year-old female with a past medical history of migraine headaches, depression with anxiety coming into the hospital with a chief complaint of left leg redness. Patient states that since evening she has been feeling fatigued and trying to sleep it off. But yesterday she started to have fevers and also noticed that the left leg redness has been getting worse and came into the hospital. Patient also complains of some retrosternal chest pain that has resolved by itself at this point of time. Patient denies having any cough or difficulty in breathing. She denies having any recent travel. She denies having any calf pain. Patient does have cracks in her feet. She states that she has athletes foot. She has history of chronic migraines and states that the fioricet that she is taking is not helping her for the headaches. In the emergency department patient was found to have tachycardia tachypnea with a fever. She had a chest x-ray done that was negative for any acute osseous process. X-ray of the left tibia and fibula no fracture dislocation. Patient has labs drawn which was showing elevated white count. She has been started on vancomycin and clindamycin and admitted to the hospital for further management. In the hospital patient was treated with IV vancomycin and clindamycin. She showed significant improvement in her redness and swelling. Patient's blood cultures have been negative for the past 48 hours but final cultures are still pending. Patient does not have fever. Her white count trended down but this morning it slightly up. Patient's vital signs and labs are reviewed. On physical exam Left lower leg - erythema and swelling much better compared to when she came in. No calf tenderness. Peripheral pulses are felt. DISCHARGE DIAGNOSIS Sepsis secondary to left leg cellulitis Left leg cellulitis Anxiety with depression Migraine headaches PLAN: Discussed the results of the blood culture and white count with the patient in detail. Patient insists that she wants to be discharged today. The blood cultures have been negative so far but the final cultures are still pending. The patient is being discharged home on ciprofloxacin and clindamycin for 7 more days. In case her swelling or redness worsens she is advised to come back to the hospital. She is advised to follow up with her primary care physician Dr. James Hernandez in 2-3 days. More than 30 minutes spent towards the discharge of the patient. Patient Condition at Discharge: Good Plan - Discharge Summary New Discharge Prescriptions: New Ciprofloxacin HCl 500 mg PO BID #14 tablet Clindamycin HCl [Cleocin] 300 mg PO Q8H 7 Days #21 cap Continue Ibuprofen [Motrin] 800 mg PO Q8H PRN PRN Reason: Pain buPROPion HCL [Wellbutrin XL] 300 mg PO HS HYDROcodone/APAP 10-325MG [[place] 10-325] 1 tab PO TID PRN PRN Reason: Pain ARIPiprazole [Abilify] 5 mg PO HS Dextroamphetamine/Amphetamine [Adderall Xr] 20 mg PO QAM Butalb/APAP/Caff 50-325-40Mg [Fioricet 50-325-40] 1 tab PO Q4H PRN PRN Reason: Migraine Headache Discharge Medication List ARIPiprazole [Abilify] 5 mg PO HS 06/20/17 [History] HYDROcodone/APAP 10-325MG [[place] 10-325] 1 tab PO TID PRN 06/20/17 [History] Ibuprofen [Motrin] 800 mg PO Q8H PRN 06/20/17 [History] buPROPion HCL [Wellbutrin XL] 300 mg PO HS 06/20/17 [History] Butalb/APAP/Caff 50-325-40Mg [Fioricet 50-325-40] 1 tab PO Q4H PRN 02/06/19 [History] Dextroamphetamine/Amphetamine [Adderall Xr] 20 mg PO QAM 02/06/19 [History] Ciprofloxacin HCl 500 mg PO BID #14 tablet 02/08/19 [Rx] Clindamycin HCl [Cleocin] 300 mg PO Q8H 7 Days #21 cap 02/08/19 [Rx] Follow up Appointment(s)/Referral(s): Anmol Feldman MD [Primary Care Provider] - 1-2 days Patient Instructions/Handouts: How to Stop Smoking (DC), Cellulitis (DC) Discharge Disposition: HOME SELF-CARE
[2019-02-08 11:59] LABS: Band Neutrophils % 4 %; Monocytes # (M) 0.27 k/uL (0-1.0); Neutrophils % (M) 88 %; Nucleated Red Blood Cells 0 /100 WBC (0-0); Total Cells Counted 100
[2019-02-08] MEDS ORDERED: VANCOMYCIN TROUGH DUE 1 EACH MISC MISCELLANE ONE (13:00)
== END 2019-02-08 13:04 | disposition home or self-care (01) ==
LOC: EC 09:59 → 4MS4W 13:12
PROVIDERS: ADMIT Internal Medicine; ATTEND Internal Medicine
DX: A41.9 Sepsis, unspecified organism (principal); L03.116 Cellulitis of left lower limb; R07.2 Precordial pain; F41.9 Anxiety disorder, unspecified; F32.9 Major depressive disorder, single episode, unspecified; G43.909 Migraine, unspecified, not intractable, without status migrainosus; F17.200 Nicotine dependence, unspecified, uncomplicated; Z79.899 Other long term (current) drug therapy; Z88.0 Allergy status to penicillin; Z79.1 Long term (current) use of non-steroidal anti-inflammatories (NSAID)
CPT/HCPCS: 36415; 93005; 80053; 80048 ×2; 82550; 83605; 84484; 85025 ×3; 85610; 85730; 81001; 87040; 87086; 73590; 73630; 71046; G0378 ×3; J3370 ×3; J1200; J1100; J1885; 96361; 96365; 96366; 96368; 96375; 99291

== ENCOUNTER 2019-02-09 10:08 | Emergency (ER) | payer OTHER ==
[2019-02-09 10:13] VITALS: RESP 18
[2019-02-09] MEDS ORDERED: KETOROLAC 30 MG/ML 1 ML VIAL IVP STA (10:45)
[2019-02-09] MEDS ORDERED: SODIUM CHLORIDE 0.9% 500 ML 500 ML IV STA (10:45)
--- NOTE | 2019-02-09 11:00 | ED ---
Extremity Problem HPI - General Chief complaint: Extremity Problem,Nontraumatic Stated complaint: lt leg infection Time Seen by Provider: 02/09/19 10:18 Source: patient Mode of arrival: ambulatory Limitations: no limitations - History of Present Illness Initial comments: Patient is a 38-year-old female presenting to emergency Department with complaints of cellulitis of the left lower leg. Patient states she left AMA yesterday from being in the hospital for cellulitis 3 days. Patient states she returns today because she noticed increase in swelling,redness, and pain of her left lower leg. Patient states she is on Cipro and clindamycin currently. Patient denies any fever, chills. Patient has no other complaints at this time. - Related Data Home Medications Medication Instructions Recorded Confirmed ARIPiprazole [Abilify] 5 mg PO HS 06/20/17 02/09/19 HYDROcodone/APAP 10-325MG [[place] 1 tab PO TID PRN 06/20/17 02/09/19 10-325] Ibuprofen [Motrin] 800 mg PO Q8H PRN 06/20/17 02/09/19 buPROPion HCL [Wellbutrin XL] 300 mg PO HS 06/20/17 02/09/19 Butalb/APAP/Caff 50-325-40Mg 1 tab PO Q4H PRN 02/06/19 02/09/19 [Fioricet 50-325-40] Dextroamphetamine/Amphetamine 20 mg PO QAM 02/06/19 02/09/19 [Adderall Xr] Previous Rx's Medication Instructions Recorded Ciprofloxacin HCl 500 mg PO BID #14 tablet 02/08/19 Clindamycin HCl [Cleocin] 300 mg PO Q8H 7 Days #21 cap 02/08/19 Allergies Allergy/AdvReac Type Severity Reaction Status Date / Time amoxicillin Allergy Anaphylaxis Verified 02/09/19 10:31 Penicillins Allergy Anaphylaxis Verified 02/09/19 10:31 Review of Systems ROS Statement: Those systems with pertinent positive or pertinent negative responses have been documented in the HPI. ROS Other: All systems not noted in ROS Statement are negative. Past Medical History Additional Past Medical History / Comment(s): migraines History of Any Multi-Drug Resistant Organisms: None Reported Past Surgical History: Section Past Psychological History: Anxiety, Depression Smoking Status: Current every day smoker Past Alcohol Use History: Occasional Past Drug Use History: Marijuana General Exam - General Exam Comments Initial Comments: GENERAL: Well-appearing, well-nourished and in no acute distress. HEAD: Atraumatic, normocephalic. EYES: Pupils equal round and reactive to light, extraocular movements intact, sclera anicteric, conjunctiva are normal. ENT: TMs normal, nares patent, oropharynx clear without exudates. Moist mucous membranes. NECK: Normal range of motion, supple without lymphadenopathy or JVD. LUNGS: Breath sounds clear to auscultation bilaterally and equal. No wheezes rales or rhonchi. HEART: Regular rate and rhythm without murmurs, rubs or gallops. ABDOMEN: Soft, nontender, normoactive bowel sounds. No guarding, no rebound. No masses appreciated. : Deferred EXTREMITIES: Normal range of motion, no pitting or edema. No clubbing or cyanosis. NEUROLOGICAL: Cranial nerves II through XII grossly intact. Normal speech, normal gait. PSYCH: Normal mood, normal affect. SKIN: Patient has erythema, swelling, pain with palpation of the left lower leg consistent with cellulitis. Limitations: no limitations Course Vital Signs 02/09/19 02/09/19 02/09/19 10:11 12:08 12:56 Temperature 98.0 F 98.4 F 97.9 F Pulse Rate 87 76 73 Respiratory 18 18 18 Rate Blood Pressure 156/105 136/98 144/99 O2 Sat by Pulse 98 97 Oximetry Medical Decision Making - Medical Decision Making Patient is a 38-year-old female with complaints of left lower leg cellulitis. Patient was admitted to the hospital for this and left AMA yesterday. Patient returns today for an increase in swelling and pain. Patient is currently on clindamycin and Cipro. On exam patient has erythema of the left lower leg, mild swelling, warmth. CBC shows WBC improvement at 9.6 down from 13.3 yesterday. The rest of CBC and CMP are within normal limits. Lactic acid is 0.8. Patient's vital signs are stable. Patient is afebrile. There was discussed with patient that her vital signs and lab work were unremarkable today. Patient will be discharged home and will continue with clindamycin and Cipro. Patient is in agreement with this plan. Return parameters were discussed with the patient she verbalizes understanding. Case discussed with Dr. Quiroz. - Lab Data Result diagrams: 02/09/19 11:50 02/09/19 11:50 Lab Results 02/09/19 02/09/19 02/09/19 Range/Units 11:50 11:50 11:50 WBC 9.6 (3.8-10.6) k/uL RBC 4.35 (3.80-5.40) m/uL Hgb 12.4 (11.4-16.0) gm/dL Hct 37.4 (34.0-46.0) % MCV 86.2 (80.0-100.0) fL MCH 28.6 (25.0-35.0) pg MCHC 33.1 (31.0-37.0) g/dL RDW 14.4 (11.5-15.5) % Plt Count 219 (150-450) k/uL Neutrophils % 70 % Lymphocytes % 20 % Monocytes % 7 % Eosinophils % 2 % Basophils % 1 % Neutrophils # 6.7 (1.3-7.7) k/uL Lymphocytes # 1.9 (1.0-4.8) k/uL Monocytes # 0.6 (0-1.0) k/uL Eosinophils # 0.2 (0-0.7) k/uL Basophils # 0.0 (0-0.2) k/uL Sodium 141 (137-145) mmol/L Potassium 3.7 (3.5-5.1) mmol/L Chloride 108 H (98-107) mmol/L Carbon Dioxide 23 (22-30) mmol/L Anion Gap 10 mmol/L BUN 21 H (7-17) mg/dL Creatinine 0.88 (0.52-1.04) mg/dL Est GFR (CKD-EPI)AfAm >90 (>60 ml/min/1.73 sqM) Est GFR (CKD-EPI)NonAf 84 (>60 ml/min/1.73 sqM) Glucose 87 (74-99) mg/dL Plasma Lactic Acid Sonny 0.8 (0.7-2.0) mmol/L Calcium 8.8 (8.4-10.2) mg/dL Total Bilirubin 0.4 (0.2-1.3) mg/dL AST 20 (14-36) U/L ALT 34 (9-52) U/L Alkaline Phosphatase 71 (38-126) U/L Total Protein 6.3 (6.3-8.2) g/dL Albumin 3.5 (3.5-5.0) g/dL Urine Color Urine Appearance (Clear) Urine pH (5.0-8.0) Ur Specific [place] (1.001-1.035) Urine Protein (Negative) Urine Glucose (UA) (Negative) Urine Ketones (Negative) Urine Blood (Negative) Urine Nitrite (Negative) Urine Bilirubin (Negative) Urine Urobilinogen (<2.0) mg/dL Ur Leukocyte Esterase (Negative) 02/09/19 Range/Units 11:55 WBC (3.8-10.6) k/uL RBC (3.80-5.40) m/uL Hgb (11.4-16.0) gm/dL Hct (34.0-46.0) % MCV (80.0-100.0) fL MCH (25.0-35.0) pg MCHC (31.0-37.0) g/dL RDW (11.5-15.5) % Plt Count (150-450) k/uL Neutrophils % % Lymphocytes % % Monocytes % % Eosinophils % % Basophils % % Neutrophils # (1.3-7.7) k/uL Lymphocytes # (1.0-4.8) k/uL Monocytes # (0-1.0) k/uL Eosinophils # (0-0.7) k/uL Basophils # (0-0.2) k/uL Sodium (137-145) mmol/L Potassium (3.5-5.1) mmol/L Chloride (98-107) mmol/L Carbon Dioxide (22-30) mmol/L Anion Gap mmol/L BUN (7-17) mg/dL Creatinine (0.52-1.04) mg/dL Est GFR (CKD-EPI)AfAm (>60 ml/min/1.73 sqM) Est GFR (CKD-EPI)NonAf (>60 ml/min/1.73 sqM) Glucose (74-99) mg/dL Plasma Lactic Acid Sonny (0.7-2.0) mmol/L Calcium (8.4-10.2) mg/dL Total Bilirubin (0.2-1.3) mg/dL AST (14-36) U/L ALT (9-52) U/L Alkaline Phosphatase (38-126) U/L Total Protein (6.3-8.2) g/dL Albumin (3.5-5.0) g/dL Urine Color Yellow Urine Appearance Clear (Clear) Urine pH 6.0 (5.0-8.0) Ur Specific [place] 1.018 (1.001-1.035) Urine Protein Negative (Negative) Urine Glucose (UA) Negative (Negative) Urine Ketones Negative (Negative) Urine Blood Negative (Negative) Urine Nitrite Negative (Negative) Urine Bilirubin Negative (Negative) Urine Urobilinogen <2.0 (<2.0) mg/dL Ur Leukocyte Esterase Negative (Negative) Disposition Clinical Impression: Cellulitis of left lower leg Disposition: HOME SELF-CARE Condition: Stable Instructions (If sedation given, give patient instructions): Cellulitis (ED) Additional Instructions: Please return to the Emergency Department if symptoms worsen or any other concerns. Follow-up with PCP as discussed. Continue with antibiotics. Is patient prescribed a controlled substance at d/c from ED?: No Referrals: Anmol Feldman MD [Primary Care Provider] - 1-2 days
[2019-02-09 11:58] LABS: Basophils % (A) 1 %; Eosinophils # (A) 0.2 k/uL (0-0.7); Eosinophils % (A) 2 %; HCT 37.4 % (34.0-46.0); HGB 12.4 gm/dL (11.4-16.0); Lymphocytes # (A) 1.9 k/uL (1.0-4.8); Lymphocytes % (A) 20 %; MCH 28.6 pg (25.0-35.0); MCHC 33.1 g/dL (31.0-37.0); MCV 86.2 fL (80.0-100.0); Mean Platelet Volume 8.4; Monocytes # (A) 0.6 k/uL (0-1.0); Monocytes % (A) 7 %; Neutrophils # (A) 6.7 k/uL (1.3-7.7); Neutrophils % (A) 70 %; Platelet Count 219 k/uL (150-450); RBC 4.35 m/uL (3.80-5.40); RDW 14.4 % (11.5-15.5); WBC 9.6 k/uL (3.8-10.6)
[2019-02-09 12:06] LABS: ALT 34 U/L (9-52); AST 20 U/L (14-36); African American GFR (CKD) >90 (>60 ml/min/1.73 sqM); Albumin 3.5 g/dL (3.5-5.0); Alkaline Phosphatase 71 U/L (38-126); Anion Gap 10 mmol/L; Blood Urea Nitrogen 21 mg/dL (7-17); Calcium 8.8 mg/dL (8.4-10.2); Carbon Dioxide 23 mmol/L (22-30); Chloride 108 mmol/L (98-107); Glucose 87 mg/dL (74-99); Potassium 3.7 mmol/L (3.5-5.1); Sodium 141 mmol/L (137-145); Total Bilirubin 0.4 mg/dL (0.2-1.3); Total Protein 6.3 g/dL (6.3-8.2)
[2019-02-09 12:08] LABS: Appearance,Urine Clear (Clear); Bilirubin,Urine Negative (Negative); Blood,Urine Negative (Negative); Color,Urine Yellow; Glucose,Urine (UA) Negative (Negative); Ketones,Urine Negative (Negative); Leukocyte Esterase,Urine Negative (Negative); Nitrite,Urine Negative (Negative); Protein,Urine Negative (Negative); Specific Gravity,Urine 1.018 (1.001-1.035); Urobilinogen,Urine <2.0 mg/dL (<2.0)
[2019-02-09 12:57] VITALS: BP 144/99; PULSE 73; TEMP 97.9
== END 2019-02-09 12:56 | disposition home or self-care (01) ==
LOC: EC 10:08
DX: L03.116 Cellulitis of left lower limb (principal); F41.9 Anxiety disorder, unspecified; F32.9 Major depressive disorder, single episode, unspecified; F17.200 Nicotine dependence, unspecified, uncomplicated; Z79.899 Other long term (current) drug therapy; Z88.0 Allergy status to penicillin
CPT/HCPCS: 36415; 80053; 83605; 85025; 81003; 99283; 96374; 96361; J1885

== ENCOUNTER 2019-08-15 19:43 | Emergency (ER) | payer OTHER ==
[2019-08-15] MEDS ORDERED: KETOROLAC 30 MG/ML 1 ML VIAL IVP STA (20:47)
[2019-08-15] MEDS ORDERED: METOCLOPRAMIDE 5 MG/ML 2 ML VIAL IVP STA (20:47)
[2019-08-15] MEDS ORDERED: diphenhydrAMINE 50 MG/ML 1 ML VIAL IVP STA (20:47)
[2019-08-15] MEDS ORDERED: SODIUM CHLORIDE 0.9% 1,000 ML IV ONE (20:47)
--- NOTE | 2019-08-15 23:19 | ED ---
Headache HPI - General Chief Complaint: Headache Stated Complaint: Headache Time Seen by Provider: 08/15/19 20:31 Mode of arrival: ambulatory Limitations: no limitations - History of Present Illness Initial Comments: 39-year-old female patient that medical history significant for migraine headaches presents to the emergency department today for evaluation of headache. States this started around 11:00 this morning. States she did take a [place] and Fioricet without relief. States she has been nauseated but has not vomited. States she is having light and sound sensitivity. She denies any blurred or double vision. Denies any head injury. Denies any new symptoms with this headache. States her symptoms are consistent with her usual migraine pattern. Denies any fever, chills, neck stiffness, numbness, tingling to her extremities area. Patient denies any recent rash, shortness breath, chest pain, abdominal pain, diarrhea, constipation, back pain, dizziness, weakness, hematuria, dysuria, urinary urgency, urinary frequency, or any other complaints. - Related Data Home Medications Medication Instructions Recorded Confirmed ARIPiprazole [Abilify] 5 mg PO HS 06/20/17 02/09/19 HYDROcodone/APAP 10-325MG [[place] 1 tab PO TID PRN 06/20/17 02/09/19 10-325] Ibuprofen [Motrin] 800 mg PO Q8H PRN 06/20/17 02/09/19 buPROPion HCL [Wellbutrin XL] 300 mg PO HS 06/20/17 02/09/19 Butalb/APAP/Caff 50-325-40Mg 1 tab PO Q4H PRN 02/06/19 02/09/19 [Fioricet 50-325-40] Dextroamphetamine/Amphetamine 20 mg PO QAM 02/06/19 02/09/19 [Adderall Xr] Previous Rx's Medication Instructions Recorded Ciprofloxacin HCl 500 mg PO BID #14 tablet 02/08/19 Clindamycin HCl [Cleocin] 300 mg PO Q8H 7 Days #21 cap 02/08/19 Triamcinolone 0.1% Cream [Kenalog 1 applic TOPICAL DAILY #60 gram 02/22/19 0.1% Cream] Allergies Allergy/AdvReac Type Severity Reaction Status Date / Time amoxicillin Allergy Anaphylaxis Verified 08/15/19 19:58 Penicillins Allergy Anaphylaxis Verified 08/15/19 19:58 Review of Systems ROS Statement: Those systems with pertinent positive or pertinent negative responses have been documented in the HPI. ROS Other: All systems not noted in ROS Statement are negative. Past Medical History Additional Past Medical History / Comment(s): migraines History of Any Multi-Drug Resistant Organisms: None Reported Past Surgical History: Section Past Psychological History: Anxiety, Depression Smoking Status: Current every day smoker Past Alcohol Use History: Occasional Past Drug Use History: Marijuana General Exam Limitations: no limitations General appearance: alert, in no apparent distress, other (This well-developed, well-nourished adult female patient in no acute distress. Vital signs upon presentation are temperature 98.0F, pulse 87, respirations) Eye exam: Present: normal appearance, PERRL, EOMI. Absent: scleral icterus, conjunctival injection, nystagmus, periorbital swelling Respiratory exam: Present: normal lung sounds bilaterally. Absent: respiratory distress, wheezes, rales, rhonchi, stridor Cardiovascular Exam: Present: regular rate, normal rhythm, normal heart sounds. Absent: systolic murmur, diastolic murmur, rubs, gallop, clicks GI/Abdominal exam: Present: soft, normal bowel sounds. Absent: distended, tenderness, guarding, rebound, rigid Neurological exam: Present: alert, oriented X3, CN II-XII intact Psychiatric exam: Present: normal affect, normal mood Skin exam: Present: warm, dry, intact, normal color. Absent: rash Course Vital Signs 08/15/19 08/15/19 08/15/19 19:56 22:26 22:30 Temperature 98.0 F Pulse Rate 87 87 85 Respiratory 18 19 18 Rate Blood Pressure 188/112 147/105 143/98 O2 Sat by Pulse 99 99 98 Oximetry 08/15/19 08/15/19 23:00 23:42 Temperature 98 F Pulse Rate 84 86 Respiratory 18 18 Rate Blood Pressure 135/83 131/84 O2 Sat by Pulse 99 98 Oximetry Medical Decision Making - Medical Decision Making 39-year-old female patient presented to the emergency department today for evaluation of migraine headache. Physical examination is unremarkable. She is neurologically intact with no focal deficits. IV was started, she is given IV fluids and medication here in the emergency department. Upon reevaluation she does report improvement of symptoms. She does feel comfortable being discharged home at this time. She is instructed to follow up with her primary care physician for recheck in 1-2 days. Return parameters were discussed in detail. He verbalizes understanding and agrees with this plan. Disposition Clinical Impression: Migraine headache Disposition: HOME SELF-CARE Condition: Good Instructions (If sedation given, give patient instructions): Migraine Headache (ED) Additional Instructions: Rest. Increase fluids. Follow-up with your primary care physician for recheck in 1-2 days. Return to the emergency department immediately for any new, worsening, or concerning symptoms. Is patient prescribed a controlled substance at d/c from ED?: No Referrals: Anmol Feldman MD [Primary Care Provider] - 1-2 days Time of Disposition: 23:19
[2019-08-15 23:41] VITALS: RESP 18
[2019-08-15 23:43] VITALS: BP 131/84; PULSE 86; TEMP 98
== END 2019-08-15 23:43 | disposition home or self-care (01) ==
LOC: EC 19:43
DX: G43.909 Migraine, unspecified, not intractable, without status migrainosus (principal); F41.9 Anxiety disorder, unspecified; F32.9 Major depressive disorder, single episode, unspecified; F17.200 Nicotine dependence, unspecified, uncomplicated; Z79.899 Other long term (current) drug therapy; Z88.0 Allergy status to penicillin
CPT/HCPCS: 99283; 96374; 96375 ×2; 96361; J1200; J2765; J1885

== ENCOUNTER 2019-08-16 08:19 | Emergency (ER) | payer OTHER ==
[2019-08-16 08:24] VITALS: TEMP 97.9
[2019-08-16] MEDS ORDERED: diphenhydrAMINE 50 MG/ML 1 ML VIAL IVP STA (09:00)
[2019-08-16] MEDS ORDERED: SODIUM CHLORIDE 0.9% 1,000 ML IV STA (09:00)
[2019-08-16] MEDS ORDERED: ACETAMINOPHEN TAB 500 MG TAB PO STA (09:00)
[2019-08-16] MEDS ORDERED: METOCLOPRAMIDE 5 MG/ML 2 ML VIAL IVP STA (09:00)
--- NOTE | 2019-08-16 09:05 | ED ---
General Adult HPI - General Chief complaint: Headache Stated complaint: migraine-revisit Time Seen by Provider: 08/16/19 08:29 Source: patient, RN notes reviewed, old records reviewed Mode of arrival: ambulatory Limitations: no limitations - History of Present Illness Initial comments: Patient is a 39-year-old female who presents emergency Department today with chief complaint of migraine-like headache, some stiffness and tenderness over her posterior scalp and into her neck muscles. Patient reports that she started to have this headache was yesterday around 11 AM after working out. She reports it seemed to be a relatively quick onset of a headache. She states that she's had history of migraines in the past. Patient states that she was seen in the emergency department last night for migraine headache. She did have been a relief of her migraine after initial ER visit, was discharged home. She reports she woke up after taking a nap after that visit this morning and woke up with a persistent headache. Patient states that she's had no nausea or vomiting. Denies any significant head injury or traumas. Patient states that she is having no visual disturbances hearing changes. - Related Data Home Medications Medication Instructions Recorded Confirmed ARIPiprazole [Abilify] 5 mg PO HS 06/20/17 02/09/19 HYDROcodone/APAP 10-325MG [[place] 1 tab PO TID PRN 06/20/17 02/09/19 10-325] Ibuprofen [Motrin] 800 mg PO Q8H PRN 06/20/17 02/09/19 buPROPion HCL [Wellbutrin XL] 300 mg PO HS 06/20/17 02/09/19 Butalb/APAP/Caff 50-325-40Mg 1 tab PO Q4H PRN 02/06/19 02/09/19 [Fioricet 50-325-40] Dextroamphetamine/Amphetamine 20 mg PO QAM 02/06/19 02/09/19 [Adderall Xr] Previous Rx's Medication Instructions Recorded Ciprofloxacin HCl 500 mg PO BID #14 tablet 02/08/19 Clindamycin HCl [Cleocin] 300 mg PO Q8H 7 Days #21 cap 02/08/19 Triamcinolone 0.1% Cream [Kenalog 1 applic TOPICAL DAILY #60 gram 02/22/19 0.1% Cream] Allergies Allergy/AdvReac Type Severity Reaction Status Date / Time amoxicillin Allergy Anaphylaxis Verified 08/16/19 08:23 Penicillins Allergy Anaphylaxis Verified 08/16/19 08:23 Review of Systems ROS Statement: Those systems with pertinent positive or pertinent negative responses have been documented in the HPI. ROS Other: All systems not noted in ROS Statement are negative. Past Medical History Additional Past Medical History / Comment(s): migraines History of Any Multi-Drug Resistant Organisms: None Reported Past Surgical History: Section Past Psychological History: Anxiety, Depression Smoking Status: Current every day smoker Past Alcohol Use History: Occasional Past Drug Use History: Marijuana General Exam - General Exam Comments Initial Comments: Alert and oriented 39-year-old female. No acute distress. Limitations: no limitations General appearance: alert, in no apparent distress Head exam: Present: atraumatic, normocephalic, normal inspection Eye exam: Present: normal appearance, PERRL, EOMI. Absent: scleral icterus, conjunctival injection, periorbital swelling ENT exam: Present: normal exam, mucous membranes moist Neck exam: Present: normal inspection. Absent: tenderness, meningismus, lymphadenopathy Respiratory exam: Present: normal lung sounds bilaterally. Absent: respiratory distress, wheezes, rales, rhonchi, stridor Cardiovascular Exam: Present: regular rate, normal rhythm, normal heart sounds. Absent: systolic murmur, diastolic murmur, rubs, gallop, clicks GI/Abdominal exam: Present: soft, normal bowel sounds. Absent: distended, tenderness, guarding, rebound, rigid Extremities exam: Present: normal inspection, full ROM, normal capillary refill. Absent: tenderness, pedal edema, joint swelling, calf tenderness Back exam: Present: normal inspection Neurological exam: Present: alert, oriented X3, CN II-XII intact Expanded Patient oriented to: Present: person, place, time Speech: Present: fluid speech Cranial nerves: EOM's Intact: Normal Cerebellar function: Finger to Nose: Normal Upper motor neuron: Pronator Drift: Normal Sensory exam: Upper Extremity Light Touch: Normal, Lower Extremity Light Touch: Normal Motor strength exam: RUE: 5, LUE: 5, RLE: 5, LLE: 5 Eye Response: (4) open spontaneously Motor Response: (6) obeys commands Verbal Response: (5) oriented [place] Total: 15 Psychiatric exam: Present: normal affect, normal mood Course Vital Signs 08/16/19 08:21 Temperature 97.9 F Pulse Rate 94 Respiratory 18 Rate Blood Pressure 145/104 O2 Sat by Pulse 99 Oximetry - Reevaluation(s) Reevaluation #1: 08/16/19 09:49 Patient was reevaluated this time with nurse was starting IV and she stated that she did not want the IV and that her headache had completely resolved at this time. She reports that since being in the emergency room she slept and now reports that she is feeling much better and has no further headache or migraine. She states that she still has some muscle soreness in her neck and back but will take Flexeril home. I discussed the Patient was to the monitored and further imaging such as CT but she has no further headache or pain when do not need to proceed with this at this time. I discussed strict return parameters. Medical Decision Making - Medical Decision Making 39-year-old female presents for reevaluation for migraine headache. Was seen emergency Department lasting around 11 PM. She was discharged after medications. She states that her headaches seem to persist upon awakening. She was in the emergency department, and slept, I offered patient's computed tomography scan and blood work. After the nurse was able to get into the room Patient was sleeping for some time and states that her headache completely resolved. She declines to have the CT or further blood work or medications. I discussed that her headache is completely resolved she has no new acute neurological deficits that she can be discharged home but instructed strict return parameters and close follow-up with her PCP. Discussed she may benefit from seeing a neurologist as well with a history of migraine headaches. Patient is agreeable to treatment plan will comply. Disposition Clinical Impression: Migraine headache Disposition: HOME SELF-CARE Condition: Good Instructions (If sedation given, give patient instructions): Migraine Headache (ED) Additional Instructions: Please use medication as discussed such as tylenol or using flexeril for concern for muscle relaxer. Please follow up with family doctor if symptoms have not improved over the next two days. Please return to the emergency room if your symptoms increase or worsen or for any other concerns. Is patient prescribed a controlled substance at d/c from ED?: No Referrals: Anmol Feldman MD [Primary Care Provider] - 1-2 days Jose Manuel Chatterjee MD [Medical Doctor] - 1-2 days Time of Disposition: 09:51
[2019-08-16 10:10] VITALS: BP 140/95; PULSE 90; RESP 20
== END 2019-08-16 10:11 | disposition home or self-care (01) ==
LOC: EC 08:19
DX: G43.909 Migraine, unspecified, not intractable, without status migrainosus (principal); F32.9 Major depressive disorder, single episode, unspecified; F17.200 Nicotine dependence, unspecified, uncomplicated; Z79.899 Other long term (current) drug therapy; Z88.0 Allergy status to penicillin; Z53.29 Procedure and treatment not carried out because of patient's decision for other reasons
CPT/HCPCS: 99283

== ENCOUNTER 2019-11-28 12:30 | Emergency (ER) | payer OTHER ==
[2019-11-28 12:35] VITALS: RESP 18
[2019-11-28] MEDS ORDERED: METOCLOPRAMIDE 5 MG/ML 2 ML VIAL IVP STA (12:45)
[2019-11-28] MEDS ORDERED: diphenhydrAMINE 50 MG/ML 1 ML VIAL IVP STA (12:45)
[2019-11-28] MEDS ORDERED: KETOROLAC 30 MG/ML 1 ML VIAL IVP STA (12:45)
[2019-11-28] MEDS ORDERED: SODIUM CHLORIDE 0.9% 500 ML 500 ML IV ONE (12:45)
--- NOTE | 2019-11-28 13:25 | ED ---
Headache HPI - General Chief Complaint: Headache Stated Complaint: migraine Time Seen by Provider: 11/28/19 12:40 Source: patient, RN notes reviewed Mode of arrival: ambulatory Limitations: no limitations - History of Present Illness Initial Comments: This a 39-year-old female sent emergency Department chief complaint migraine headache. Patient states that she does have a long history migraine headaches uses see a neurologist and has had prior MRI. Patient states taken 2 Fioricet with no relief. Patient denies any blurred vision she does have some photosensitivity minimal nausea no vomiting no focal weakness. She states she has posterior headache which is typical for her. She denies any trauma or neck stiffness. Patient denies any abdominal pain, chest pain or shortness of breath. - Related Data Home Medications Medication Instructions Recorded Confirmed ARIPiprazole [Abilify] 5 mg PO HS 06/20/17 02/09/19 HYDROcodone/APAP 10-325MG [[place] 1 tab PO TID PRN 06/20/17 02/09/19 10-325] Ibuprofen [Motrin] 800 mg PO Q8H PRN 06/20/17 02/09/19 buPROPion HCL [Wellbutrin XL] 300 mg PO HS 06/20/17 02/09/19 Butalb/APAP/Caff 50-325-40Mg 1 tab PO Q4H PRN 02/06/19 02/09/19 [Fioricet 50-325-40] Dextroamphetamine/Amphetamine 20 mg PO QAM 02/06/19 02/09/19 [Adderall Xr] Previous Rx's Medication Instructions Recorded Ciprofloxacin HCl 500 mg PO BID #14 tablet 02/08/19 Clindamycin HCl [Cleocin] 300 mg PO Q8H 7 Days #21 cap 02/08/19 Triamcinolone 0.1% Cream [Kenalog 1 applic TOPICAL DAILY #60 gram 02/22/19 0.1% Cream] Allergies Allergy/AdvReac Type Severity Reaction Status Date / Time amoxicillin Allergy Anaphylaxis Verified 11/28/19 12:31 Penicillins Allergy Anaphylaxis Verified 11/28/19 12:31 Review of Systems ROS Statement: Those systems with pertinent positive or pertinent negative responses have been documented in the HPI. ROS Other: All systems not noted in ROS Statement are negative. Past Medical History Additional Past Medical History / Comment(s): migraines History of Any Multi-Drug Resistant Organisms: None Reported Past Surgical History: Section Past Psychological History: Anxiety, Depression Smoking Status: Current every day smoker Past Alcohol Use History: Occasional Past Drug Use History: Marijuana General Exam Limitations: no limitations General appearance: alert, in no apparent distress Head exam: Present: atraumatic, normocephalic, normal inspection Eye exam: Present: normal appearance, PERRL, EOMI. Absent: scleral icterus, conjunctival injection, periorbital swelling ENT exam: Present: normal exam, normal oropharynx, mucous membranes moist Neck exam: Present: normal inspection, full ROM. Absent: tenderness, meningismus, lymphadenopathy Respiratory exam: Present: normal lung sounds bilaterally. Absent: respiratory distress, wheezes, rales, rhonchi, stridor Neurological exam: Present: alert, oriented X3, CN II-XII intact, normal gait, reflexes normal, other (Finger to nose intact bilaterally without over shooting). Absent: motor sensory deficit Skin exam: Present: warm, dry, intact, normal color. Absent: rash Course Vital Signs 11/28/19 12:32 Temperature 98.1 F Pulse Rate 83 Respiratory 18 Rate Blood Pressure 146/106 O2 Sat by Pulse 96 Oximetry Medical Decision Making - Medical Decision Making Patient was reevaluated states her headache as resolved. She is neurologically intact. Patient we discharged in stable condition. Disposition Clinical Impression: Migraine headache Disposition: HOME SELF-CARE Condition: Stable Instructions (If sedation given, give patient instructions): Acute Headache (ED) Additional Instructions: Please return to the Emergency Department if symptoms worsen or any other concerns. Is patient prescribed a controlled substance at d/c from ED?: No Referrals: Anmol Feldman MD [Primary Care Provider] - 1-2 days Time of Disposition: 13:53
[2019-11-28 14:19] VITALS: BP 130/78; PULSE 84; TEMP 98.2
== END 2019-11-28 14:17 | disposition home or self-care (01) ==
LOC: EC 12:30
DX: G43.909 Migraine, unspecified, not intractable, without status migrainosus (principal); F41.9 Anxiety disorder, unspecified; F32.9 Major depressive disorder, single episode, unspecified; F17.200 Nicotine dependence, unspecified, uncomplicated; Z79.899 Other long term (current) drug therapy; Z88.0 Allergy status to penicillin
CPT/HCPCS: 99283; 96374; 96375 ×2; 96361; J1200; J2765; J1885

== ENCOUNTER 2020-04-14 08:44 | Emergency (ER) | payer OTHER ==
[2020-04-14 09:03] VITALS: RESP 16
[2020-04-14] MEDS ORDERED: SODIUM CHLORIDE 0.9% 1,000 ML IV STA (09:08)
[2020-04-14] MEDS ORDERED: ONDANSETRON 4 MG/2 ML VIAL IVP STA (09:13)
[2020-04-14] MEDS ORDERED: KETOROLAC 15 MG/ML 1 ML VIAL IVP STA (09:13)
[2020-04-14] MEDS ORDERED: diphenhydrAMINE 50 MG/ML 1 ML VIAL IVP STA (09:13)
--- NOTE | 2020-04-14 09:15 | ED ---
General Adult HPI - General Chief complaint: Headache Stated complaint: Migraine Time Seen by Provider: 04/14/20 09:08 Source: patient Mode of arrival: ambulatory Limitations: no limitations - History of Present Illness Initial comments: Dictation was produced using [employer] dictation software. please excuse any grammatical, word or spelling errors. This patient was cared for during a federal and state declared state of emergency secondary to Covid 19 Chief Complaint: 40-year-old female presents with migraine History of Present Illness: A 40-year-old female she has past medical history of migraines. Patient states she's been having a migraine for approximately 4 days. She states this headache feels typical for her usual migraine symptoms. States pain is in her lower neck posteriorly radiates up to her occiput. Patient states she's been a lot of stress. She has just been going through a court [place]iam with her ex-. She has history of stress related migraines. Patient's been eating well and sleeping well otherwise. She does have a intrauterine device. She denies . She is sexually active. She has no focal neurologic deficits. Patient has any vision loss. The ROS documented in this emergency department record has been reviewed and confirmed by me. Those systems with pertinent positive or negative responses have been documented in the HPI. All other systems are other negative and/or noncontributory. PHYSICAL EXAM: General Impression: Alert and oriented x3, not in acute distress HEENT: Normocephalic atraumatic, extra-ocular movements intact, pupils equal and reactive to light bilaterally, mucous membranes moist. Cardiovascular: Heart regular rate and rhythm Chest: Able to complete full sentences, no retractions, no tachypnea Abdomen: abdomen soft, non-tender, non-distended, no organomegaly Musculoskeletal: Pulses present and equal in all extremities, no peripheral edema Motor: no focal deficits noted Neurological: CN II-XII grossly intact, no focal motor or sensory deficits noted Skin: Intact with no visualized rashes Psych: Normal affect and mood ED course: 40 yo female presents with click or presentation consistent with migraine. She reports that her symptoms are typical for usual. Signs upon arrival are within acceptable limits. Patient given migraine cocktail. Patient reevaluated after headache cocktail with significant improvement of symptoms. Patient is agreeable for discharge. Patient advised follow-up with primary care physician. Return parameters as discussed. - Related Data Home Medications Medication Instructions Recorded Confirmed ARIPiprazole [Abilify] 5 mg PO HS 06/20/17 02/09/19 HYDROcodone/APAP 10-325MG [[place] 1 tab PO TID PRN 06/20/17 02/09/19 10-325] Ibuprofen [Motrin] 800 mg PO Q8H PRN 06/20/17 02/09/19 buPROPion HCL [Wellbutrin XL] 300 mg PO HS 06/20/17 02/09/19 Butalb/APAP/Caff 50-325-40Mg 1 tab PO Q4H PRN 02/06/19 02/09/19 [Fioricet 50-325-40] Dextroamphetamine/Amphetamine 20 mg PO QAM 02/06/19 02/09/19 [Adderall Xr] Previous Rx's Medication Instructions Recorded Ciprofloxacin HCl 500 mg PO BID #14 tablet 02/08/19 clindamycin HCL [Cleocin] 300 mg PO Q8H 7 Days #21 cap 02/08/19 Triamcinolone 0.1% Cream [Kenalog 1 applic TOPICAL DAILY #60 gram 02/22/19 0.1% Cream] Allergies Allergy/AdvReac Type Severity Reaction Status Date / Time amoxicillin Allergy Anaphylaxis Verified 04/14/20 09:03 Penicillins Allergy Anaphylaxis Verified 04/14/20 09:03 Review of Systems ROS Statement: Those systems with pertinent positive or pertinent negative responses have been documented in the HPI. ROS Other: All systems not noted in ROS Statement are negative. Past Medical History Additional Past Medical History / Comment(s): migraines History of Any Multi-Drug Resistant Organisms: None Reported Past Surgical History: Section Past Psychological History: Anxiety, Depression Smoking Status: Current every day smoker Past Alcohol Use History: Occasional Past Drug Use History: Marijuana General Exam Limitations: no limitations Course Vital Signs 04/14/20 09:00 Temperature 98.3 F Pulse Rate 83 Respiratory 16 Rate Blood Pressure 137/99 O2 Sat by Pulse 95 Oximetry Medical Decision Making - Lab Data Result diagrams: 04/14/20 09:32 04/14/20 09:32 Lab Results 04/14/20 04/14/20 04/14/20 Range/Units 09:32 09:32 09:32 WBC 10.4 (3.8-10.6) k/uL RBC 5.25 (3.80-5.40) m/uL Hgb 15.3 (11.4-16.0) gm/dL Hct 44.3 (34.0-46.0) % MCV 84.3 (80.0-100.0) fL MCH 29.2 (25.0-35.0) pg MCHC 34.6 (31.0-37.0) g/dL RDW 13.7 (11.5-15.5) % Plt Count 215 (150-450) k/uL Neutrophils % 73 % Lymphocytes % 19 % Monocytes % 5 % Eosinophils % 3 % Basophils % 0 % Neutrophils # 7.6 (1.3-7.7) k/uL Lymphocytes # 2.0 (1.0-4.8) k/uL Monocytes # 0.5 (0-1.0) k/uL Eosinophils # 0.3 (0-0.7) k/uL Basophils # 0.0 (0-0.2) k/uL Sodium 137 (137-145) mmol/L Potassium 4.5 (3.5-5.1) mmol/L Chloride 106 (98-107) mmol/L Carbon Dioxide 25 (22-30) mmol/L Anion Gap 6 mmol/L BUN 10 (7-17) mg/dL Creatinine 0.73 (0.52-1.04) mg/dL Est GFR (CKD-EPI)AfAm >90 (>60 ml/min/1.73 sqM) Est GFR (CKD-EPI)NonAf >90 (>60 ml/min/1.73 sqM) Glucose 120 H (74-99) mg/dL Calcium 9.2 (8.4-10.2) mg/dL Urine HCG, Qual Not Detected (Not Detectd) Disposition Clinical Impression: Headache Disposition: HOME SELF-CARE Condition: Good Instructions (If sedation given, give patient instructions): Acute Headache (ED) Is patient prescribed a controlled substance at d/c from ED?: No Referrals: Anmol Feldman MD [Primary Care Provider] - 1-2 days Time of Disposition: 10:25
[2020-04-14 09:52] LABS: Basophils % (A) 0 %; Eosinophils # (A) 0.3 k/uL (0-0.7); Eosinophils % (A) 3 %; HCT 44.3 % (34.0-46.0); HGB 15.3 gm/dL (11.4-16.0); Lymphocytes % (A) 19 %; MCH 29.2 pg (25.0-35.0); MCHC 34.6 g/dL (31.0-37.0); MCV 84.3 fL (80.0-100.0); Mean Platelet Volume 9.2; Monocytes # (A) 0.5 k/uL (0-1.0); Monocytes % (A) 5 %; Neutrophils # (A) 7.6 k/uL (1.3-7.7); Neutrophils % (A) 73 %; Platelet Count 215 k/uL (150-450); RBC 5.25 m/uL (3.80-5.40); RDW 13.7 % (11.5-15.5); WBC 10.4 k/uL (3.8-10.6)
[2020-04-14 10:05] LABS: African American GFR (CKD) >90 (>60 ml/min/1.73 sqM); Anion Gap 6 mmol/L; Blood Urea Nitrogen 10 mg/dL (7-17); Calcium 9.2 mg/dL (8.4-10.2); Carbon Dioxide 25 mmol/L (22-30); Chloride 106 mmol/L (98-107); Glucose 120 mg/dL (74-99); Non-African American GFR(CKD) >90 (>60 ml/min/1.73 sqM); Potassium 4.5 mmol/L (3.5-5.1); Sodium 137 mmol/L (137-145)
[2020-04-14 10:32] VITALS: BP 136/80; PULSE 78; TEMP 98.4
== END 2020-04-14 10:31 | disposition home or self-care (01) ==
LOC: EC 08:44
DX: G43.909 Migraine, unspecified, not intractable, without status migrainosus (principal); F32.9 Major depressive disorder, single episode, unspecified; F41.9 Anxiety disorder, unspecified; F17.200 Nicotine dependence, unspecified, uncomplicated; Z79.899 Other long term (current) drug therapy; Z88.0 Allergy status to penicillin
CPT/HCPCS: 36415; 80048; 85025; 81025; 99283; 96374; 96375 ×2; 96361; J1200; J2405; J1885

== ENCOUNTER 2021-02-26 07:51 | Emergency (ER) | payer OTHER ==
[2021-02-26 07:59] VITALS: TEMP 98.6
--- NOTE | 2021-02-26 08:13 | ED ---
General Adult HPI - General Chief complaint: Chest Pain Stated complaint: chest pain Time Seen by Provider: 02/26/21 07:59 Source: patient, RN notes reviewed, old records reviewed Mode of arrival: ambulatory Limitations: no limitations - History of Present Illness Initial comments: 41-year-old female presenting for evaluation of chest pain. Pain is on the right anterior chest, central chest, and does occasionally shoot into the left chest. Pain is predominantly described as a pressure. She is scheduled for a stress test currently although she has no known history of coronary artery disease, no history DVT or PE. She's had no cough. Very mild dyspnea associated with her discomfort and pain. No fevers. No abdominal pain. No vomiting. No diaphoresis. She does states she's been swimming for the past one month. She does not have worsening pain with activity. - Related Data Home Medications Medication Instructions Recorded Confirmed HYDROcodone/APAP 10-325MG [[place] 1 tab PO Q8H PRN 06/20/17 02/26/21 10-325] ARIPiprazole [Abilify] 2 mg PO HS 02/26/21 02/26/21 Cider Vinegar [Apple Cider Vinegar] 300 mg PO DAILY 02/26/21 02/26/21 Losartan Potassium 50 mg PO DAILY 02/26/21 02/26/21 Omeprazole 20 mg PO DAILY 02/26/21 02/26/21 buPROPion XL [Wellbutrin XL] 150 mg PO DAILY 02/26/21 02/26/21 busPIRone HCl [Buspar] 10 mg PO BID 02/26/21 02/26/21 hydroCHLOROthiazide [Hydrodiuril] 25 mg PO DAILY 02/26/21 02/26/21 Allergies Allergy/AdvReac Type Severity Reaction Status Date / Time amoxicillin Allergy Anaphylaxis Verified 02/26/21 09:03 Penicillins Allergy Anaphylaxis Verified 02/26/21 09:03 Review of Systems ROS Statement: Those systems with pertinent positive or pertinent negative responses have been documented in the HPI. ROS Other: All systems not noted in ROS Statement are negative. Past Medical History Past Medical History: Hypertension Additional Past Medical History / Comment(s): migraines History of Any Multi-Drug Resistant Organisms: None Reported Past Surgical History: Section Past Psychological History: Anxiety, Depression Smoking Status: Current every day smoker Past Alcohol Use History: Occasional Past Drug Use History: Marijuana General Exam Limitations: no limitations General appearance: alert, in no apparent distress Head exam: Present: atraumatic, normocephalic Eye exam: Present: normal appearance, PERRL ENT exam: Present: normal exam Neck exam: Present: normal inspection. Absent: tenderness, meningismus Respiratory exam: Present: normal lung sounds bilaterally. Absent: respiratory distress, wheezes Cardiovascular Exam: Present: regular rate, normal rhythm GI/Abdominal exam: Present: soft. Absent: distended, tenderness, guarding Extremities exam: Present: normal inspection, normal capillary refill. Absent: pedal edema Neurological exam: Present: alert, oriented X3, CN II-XII intact. Absent: motor sensory deficit Psychiatric exam: Present: normal affect, normal mood Skin exam: Present: warm, dry, intact. Absent: cyanosis, diaphoretic Course Vital Signs 02/26/21 02/26/21 07:55 08:08 Temperature 98.6 F Pulse Rate 82 Respiratory 18 16 Rate Blood Pressure 128/87 O2 Sat by Pulse 97 Oximetry EKG Findings - EKG Comments: EKG Findings:: Normal sinus rhythm, rate of 90, [place] interval 126, QRS duration 80, QTC [address] segment elevation. Medical Decision Making - Medical Decision Making 41-year-old female with atypical chest pain. No previous history of CAD. She she is currently undergoing an outpatient workup and has a stress test scheduled for next week. Initial EKG sinus rhythm without ST segment elevation. Chest x-ray is clear. She has a normal CBC, normal CMP, negative initial troponin. She did have an elevated d-dimer and therefore CT angiography was performed which was negative for pulmonary embolism. Patient remains hemodynamically stable in the emergency department. I did plan to observe this patient for stroke or cardiac enzymes, telemetry, cardiology consultation. Patient prefers discharge but agrees 2 second 3hr troponin. This is obtained in the emergency department and is negative. She has good outpatient follow-up and return parameters are discussed. - Lab Data Result diagrams: 02/26/21 08:38 02/26/21 08:38 Lab Results 02/26/21 02/26/21 02/26/21 Range/Units 08:38 08:38 08:38 WBC 8.6 (3.8-10.6) k/uL RBC 4.92 (3.80-5.40) m/uL Hgb 14.5 (11.4-16.0) gm/dL Hct 42.4 (34.0-46.0) % MCV 86.1 (80.0-100.0) fL MCH 29.5 (25.0-35.0) pg MCHC 34.3 (31.0-37.0) g/dL RDW 13.6 (11.5-15.5) % Plt Count 197 (150-450) k/uL MPV 9.5 Neutrophils % 75 % Lymphocytes % 17 % Monocytes % 4 % Eosinophils % 2 % Basophils % 1 % Neutrophils # 6.4 (1.3-7.7) k/uL Lymphocytes # 1.5 (1.0-4.8) k/uL Monocytes # 0.3 (0-1.0) k/uL Eosinophils # 0.2 (0-0.7) k/uL Basophils # 0.1 (0-0.2) k/uL PT 10.4 (9.0-12.0) sec INR 1.0 (<1.2) APTT 22.9 (22.0-30.0) sec D-Dimer 1.21 H (<0.60) mg/L FEU Sodium 137 (137-145) mmol/L Potassium 4.0 (3.5-5.1) mmol/L Chloride 105 (98-107) mmol/L Carbon Dioxide 25 (22-30) mmol/L Anion Gap 7 mmol/L BUN 11 (7-17) mg/dL Creatinine 0.76 (0.52-1.04) mg/dL Est GFR (CKD-EPI)AfAm >90 (>60 ml/min/1.73 sqM) Est GFR (CKD-EPI)NonAf >90 (>60 ml/min/1.73 sqM) Glucose 159 H (74-99) mg/dL Calcium 9.3 (8.4-10.2) mg/dL Magnesium 1.5 L (1.6-2.3) mg/dL Total Bilirubin 0.3 (0.2-1.3) mg/dL AST 27 (14-36) U/L ALT 29 (4-34) U/L Alkaline Phosphatase 75 (38-126) U/L Troponin I (0.000-0.034) ng/mL Total Protein 6.4 (6.3-8.2) g/dL Albumin 3.7 (3.5-5.0) g/dL Lipase 113 (23-300) U/L 02/26/21 Range/Units 08:38 WBC (3.8-10.6) k/uL RBC (3.80-5.40) m/uL Hgb (11.4-16.0) gm/dL Hct (34.0-46.0) % MCV (80.0-100.0) fL MCH (25.0-35.0) pg MCHC (31.0-37.0) g/dL RDW (11.5-15.5) % Plt Count (150-450) k/uL MPV Neutrophils % % Lymphocytes % % Monocytes % % Eosinophils % % Basophils % % Neutrophils # (1.3-7.7) k/uL Lymphocytes # (1.0-4.8) k/uL Monocytes # (0-1.0) k/uL Eosinophils # (0-0.7) k/uL Basophils # (0-0.2) k/uL PT (9.0-12.0) sec INR (<1.2) APTT (22.0-30.0) sec D-Dimer (<0.60) mg/L FEU Sodium (137-145) mmol/L Potassium (3.5-5.1) mmol/L Chloride (98-107) mmol/L Carbon Dioxide (22-30) mmol/L Anion Gap mmol/L BUN (7-17) mg/dL Creatinine (0.52-1.04) mg/dL Est GFR (CKD-EPI)AfAm (>60 ml/min/1.73 sqM) Est GFR (CKD-EPI)NonAf (>60 ml/min/1.73 sqM) Glucose (74-99) mg/dL Calcium (8.4-10.2) mg/dL Magnesium (1.6-2.3) mg/dL Total Bilirubin (0.2-1.3) mg/dL AST (14-36) U/L ALT (4-34) U/L Alkaline Phosphatase (38-126) U/L Troponin I <0.012 (0.000-0.034) ng/mL Total Protein (6.3-8.2) g/dL Albumin (3.5-5.0) g/dL Lipase (23-300) U/L Disposition Clinical Impression: Chest pain Disposition: HOME SELF-CARE Condition: Good Instructions (If sedation given, give patient instructions): Chest Pain (ED) Is patient prescribed a controlled substance at d/c from ED?: No Referrals: Anmol Feldman MD [Primary Care Provider] - 1-2 days Time of Disposition: 12:02
--- NOTE | 2021-02-26 08:46 | XR ---
EXAMINATION TYPE: XR chest 2V DATE OF EXAM: 02/26/2021 COMPARISON: 02/06/2019 HISTORY: 41-year-old female with chest pain TECHNIQUE: PA and lateral views FINDINGS: Heart normal size. Aorta and pulmonary vasculature within normal limits. Some strandy atelectasis in the lower lungs. No consolidation or pleural effusion. IMPRESSION: No acute cardiopulmonary process.
[2021-02-26 08:51] LABS: Basophils # (A) 0.1 k/uL (0-0.2); Basophils % (A) 1 %; Eosinophils # (A) 0.2 k/uL (0-0.7); Eosinophils % (A) 2 %; HCT 42.4 % (34.0-46.0); HGB 14.5 gm/dL (11.4-16.0); Lymphocytes # (A) 1.5 k/uL (1.0-4.8); Lymphocytes % (A) 17 %; MCH 29.5 pg (25.0-35.0); MCHC 34.3 g/dL (31.0-37.0); MCV 86.1 fL (80.0-100.0); Mean Platelet Volume 9.5; Monocytes # (A) 0.3 k/uL (0-1.0); Monocytes % (A) 4 %; Neutrophils # (A) 6.4 k/uL (1.3-7.7); Neutrophils % (A) 75 %; Platelet Count 197 k/uL (150-450); RBC 4.92 m/uL (3.80-5.40); RDW 13.6 % (11.5-15.5); WBC 8.6 k/uL (3.8-10.6)
[2021-02-26 09:04] LABS: Partial Thromboplastin Time 22.9 sec (22.0-30.0); Prothrombin Time 10.4 sec (9.0-12.0)
[2021-02-26 09:06] LABS: ALT 29 U/L (4-34); AST 27 U/L (14-36); African American GFR (CKD) >90 (>60 ml/min/1.73 sqM); Albumin 3.7 g/dL (3.5-5.0); Alkaline Phosphatase 75 U/L (38-126); Anion Gap 7 mmol/L; Blood Urea Nitrogen 11 mg/dL (7-17); Calcium 9.3 mg/dL (8.4-10.2); Carbon Dioxide 25 mmol/L (22-30); Chloride 105 mmol/L (98-107); Glucose 159 mg/dL (74-99); Lipase 113 U/L (23-300); Magnesium 1.5 mg/dL (1.6-2.3); Non-African American GFR(CKD) >90 (>60 ml/min/1.73 sqM); Sodium 137 mmol/L (137-145); Total Bilirubin 0.3 mg/dL (0.2-1.3); Total Protein 6.4 g/dL (6.3-8.2)
--- NOTE | 2021-02-26 10:11 | CT ---
EXAMINATION TYPE: CT angio chest DATE OF EXAM: 02/26/2021 9:52 AM COMPARISON: Radiograph same date HISTORY: 41-year-old female Left sided chest pain with shortness of breath. CT DLP: 853.4 mGycm Automated exposure control for dose reduction was used. TECHNIQUE: CT performed with IV Contrast, patient injected with 100 mL of Isovue 300. Coronal and sag ittal MIP reconstructions performed. . FINDINGS: Heart normal size without pericardial effusion. No flattening of the interventricular septum or reflu x of contrast into the hepatic veins. Aorta normal caliber with bovine configuration to the aortic arch. No thoracic lymphadenopathy by CT size criteria. While there is satisfactory opacification of the pulmonary arterial system, there is breathing motion artifact. No definite pulmonary embolus is seen. Mild diffuse bronchial wall thickening. Mild patchy subpleural atelectasis posterior lower lungs. No consolidation or pleural effusion. Normal mottled arterial enhancement of the spleen. Underlying hepatic steatosis given the decreased l iver density. Bones: Old healed right-sided rib fracture deformities. Mild degenerative disc disease mid to lower t horacic spine. IMPRESSION: 1. BREATHING MOTION ARTIFACT. NO DEFINITE PULMONARY EMBOLUS IS SEEN. 2. MILD DEPENDENT ATELECTASIS. MILD DIFFUSE BRONCHIAL WALL THICKENING MAY BE SEEN WITH BRONCHITIS OR CHRONIC ASTHMA. 3. HEPATIC STEATOSIS.
[2021-02-26 12:25] VITALS: BP 116/66; PULSE 65; RESP 18
== END 2021-02-26 12:29 | disposition home or self-care (01) ==
LOC: EC 07:51
DX: R07.89 Other chest pain (principal); I10 Essential (primary) hypertension; F41.9 Anxiety disorder, unspecified; F32.9 Major depressive disorder, single episode, unspecified; F17.200 Nicotine dependence, unspecified, uncomplicated; F12.90 Cannabis use, unspecified, uncomplicated; Z88.0 Allergy status to penicillin; Z88.1 Allergy status to other antibiotic agents
CPT/HCPCS: 99285; 36415; 93005; 85379; 80053; 83690; 83735; 84484; 85025; 85610; 85730; 71046; 71275; Q9967

== ENCOUNTER 2021-05-31 16:19 | Emergency (ER) | payer OTHER ==
[2021-05-31 17:02] VITALS: BP 128/70; PULSE 85; RESP 18; TEMP 97.2
--- NOTE | 2021-05-31 18:13 | XR ---
PROCEDURE: XR ankle complete LT - 3V DATE AND TIME: 05/31/2021 6:01 PM CLINICAL INDICATION: PHH; pain TECHNIQUE: Department protocol COMPARISON: 02/06/2019 FINDINGS: There is no fracture or malalignment. The soft tissues are unremarkable. IMPRESSION: NO ACUTE PROCESS.
--- NOTE | 2021-05-31 18:15 | XR ---
PROCEDURE: XR foot complete LT - 3V DATE AND TIME: 05/31/2021 6:01 PM CLINICAL INDICATION: PHH; pain TECHNIQUE: Department protocol COMPARISON: None FINDINGS: There is no fracture or malalignment. The soft tissues are unremarkable. IMPRESSION: NO ACUTE PROCESS.
--- NOTE | 2021-05-31 18:41 | ED ---
General Adult HPI - General Chief complaint: Extremity Injury, Lower Stated complaint: achilles tendon Time Seen by Provider: 05/31/21 17:27 Source: patient, RN notes reviewed Mode of arrival: ambulatory Limitations: physical limitation - History of Present Illness Initial comments: 41-year-old female with a past medical history of hypertension presents to the emergency room for chief complaint of left ankle and foot pain. This started this morning when she woke up. He says she got out of bed and started putting weight on her left foot she started to have pain in the Achilles tendon and heel. States it hurts worse with walking and better with resting. Patient states she has a history of plantar fasciitis however her pain was more anterior on the foot when this occurred in the past. Patient denies any injuries.Patient has no other complaints at this time including shortness of breath, chest pain, abdominal pain, nausea or vomiting, headache, or visual changes. - Related Data Home Medications Medication Instructions Recorded Confirmed HYDROcodone/APAP 10-325MG [[place] 1 tab PO Q8H PRN 06/20/17 02/26/21 10-325] ARIPiprazole [Abilify] 2 mg PO HS 02/26/21 02/26/21 Cider Vinegar [Apple Cider Vinegar] 300 mg PO DAILY 02/26/21 02/26/21 Losartan Potassium 50 mg PO DAILY 02/26/21 02/26/21 Omeprazole 20 mg PO DAILY 02/26/21 02/26/21 buPROPion XL [Wellbutrin XL] 150 mg PO DAILY 02/26/21 02/26/21 busPIRone HCl [Buspar] 10 mg PO BID 02/26/21 02/26/21 hydroCHLOROthiazide [Hydrodiuril] 25 mg PO DAILY 02/26/21 02/26/21 Allergies Allergy/AdvReac Type Severity Reaction Status Date / Time amoxicillin Allergy Anaphylaxis Verified 05/31/21 17:03 Penicillins Allergy Anaphylaxis Verified 05/31/21 17:03 Review of Systems ROS Statement: Those systems with pertinent positive or pertinent negative responses have been documented in the HPI. ROS Other: All systems not noted in ROS Statement are negative. Past Medical History Past Medical History: Hypertension Additional Past Medical History / Comment(s): migraines History of Any Multi-Drug Resistant Organisms: None Reported Past Surgical History: Section Past Psychological History: Anxiety, Depression Smoking Status: Current every day smoker Past Alcohol Use History: Occasional Past Drug Use History: Marijuana General Exam Limitations: physical limitation General appearance: alert, in no apparent distress Head exam: Present: atraumatic Eye exam: Present: normal appearance, PERRL, EOMI. Absent: scleral icterus, conjunctival injection ENT exam: Present: normal exam, mucous membranes moist Neck exam: Present: normal inspection, full ROM. Absent: tenderness Respiratory exam: Present: normal lung sounds bilaterally. Absent: respiratory distress, wheezes Cardiovascular Exam: Present: regular rate, normal rhythm, normal heart sounds Extremities exam: Present: full ROM (Full range of motion of the left foot and ankle.), tenderness (Mild tenderness to the medial aspect of the left ankle. Mild tenderness in the heel.), normal capillary refill (Capillary refill less than 2 seconds, DP pulse 2+.). Absent: joint swelling (No significant swelling of the left foot.) Course Vital Signs 05/31/21 16:57 Temperature 97.2 F L Pulse Rate 85 Respiratory 18 Rate Blood Pressure 128/70 O2 Sat by Pulse 98 Oximetry Medical Decision Making - Medical Decision Making X-ray of the left foot and ankle are negative. Patient will be discharged home to follow up with primary care and orthopedics. We will trev wrap the foot. They will return here for any worsening symptoms. Disposition Clinical Impression: Ankle pain, left, Foot pain, left Disposition: HOME SELF-CARE Condition: Good Instructions (If sedation given, give patient instructions): Ankle Sprain (ED) Additional Instructions: Please take anti-inflammatories such as Motrin and Tylenol for pain. Use Trev wrap. Follow-up with your doctor. Return to the emergency room for any worsening symptoms. Is patient prescribed a controlled substance at d/c from ED?: No Referrals: Anmol Feldman MD [Primary Care Provider] - 1-2 days Amber Chavez DO [Doctor of Osteopathic Medicine] - 1-2 days Time of Disposition: 18:40
== END 2021-05-31 19:16 | disposition home or self-care (01) ==
LOC: EC 16:19
DX: M25.572 Pain in left ankle and joints of left foot (principal); I10 Essential (primary) hypertension; F41.9 Anxiety disorder, unspecified; F32.9 Major depressive disorder, single episode, unspecified; F17.200 Nicotine dependence, unspecified, uncomplicated; F12.90 Cannabis use, unspecified, uncomplicated; Z88.0 Allergy status to penicillin
CPT/HCPCS: 99283

== ENCOUNTER 2023-07-03 07:49 | Emergency (ER) | payer OTHER ==
[2023-07-03] MEDS ORDERED: SODIUM CHLORIDE 0.9% 500 ML 500 ML IV STA (08:25)
[2023-07-03] MEDS ORDERED: KETOROLAC 15 MG/ML 1 ML VIAL IVP STA (08:26)
--- NOTE | 2023-07-03 08:42 | ED ---
General Adult HPI - General Chief complaint: Chest Pain Stated complaint: chest pains Time Seen by Provider: 07/03/23 08:03 Source: patient, RN notes reviewed, old records reviewed Mode of arrival: ambulatory Limitations: no limitations - History of Present Illness Initial comments: Patient is a 43-year-old female presents to the emergency department complaining of chest pain. Patient has had symptoms on and off for the last week and a half. Patient has a history of hypertension, tobacco abuse, diabetes. Is complaining of chest pain that starts either on the left or the right side near her sternum with no radiation. States she occasionally experiences diaphoresis with it. Denies any shortness of breath with it. Denies any cough or fevers. Denies nausea or vomiting or abdominal pain. His no other acute complaints at this time. Does have a family history of cardiac disease. Presents for further evaluation at this time. Unknown palliative or provocative factors. The pain comes and goes at will. He has attempted antiacids with some relief in symptoms. Describes the chest pain as a sharp feeling.Patient states she currently has minimal if any symptoms at this time. - Related Data Home Medications Medication Instructions Recorded Confirmed HYDROcodone/APAP 10-325MG [[place] 1 tab PO QID PRN 06/20/17 07/03/23 10-325] ARIPiprazole [Abilify] 2 mg PO HS 02/26/21 07/03/23 Cider Vinegar [Apple Cider Vinegar] 300 mg PO DAILY 02/26/21 07/03/23 Losartan Potassium 50 mg PO DAILY 02/26/21 07/03/23 Omeprazole 20 mg PO DAILY 02/26/21 07/03/23 buPROPion XL [Wellbutrin XL] 300 mg PO DAILY 02/26/21 07/03/23 hydroCHLOROthiazide [Hydrodiuril] 25 mg PO DAILY 02/26/21 07/03/23 Acetaminophen Tab [Tylenol Tab] 1,000 mg PO Q6H PRN 07/03/23 07/03/23 Ascorbic Acid [Vitamin C] 500 mg PO BID 07/03/23 07/03/23 Atorvastatin [Lipitor] 40 mg PO DAILY 07/03/23 07/03/23 Cholecalciferol [Vitamin D3 (25 25 mcg PO DAILY 07/03/23 07/03/23 Mcg = 1000 Iu)] Dextroamphetamine/Amphetamine 20 mg PO DAILY 07/03/23 07/03/23 [Adderall Xr 20 mg Capsule] Elderberry Fruit [Elderberry] 350 mg PO DAILY 07/03/23 07/03/23 Zinc Gluconate [Zinc] 50 mg PO DAILY 07/03/23 07/03/23 busPIRone HCL 15 mg PO BID 07/03/23 07/03/23 metFORMIN HCL ER [Glucophage XR] 500 mg PO DAILY 07/03/23 07/03/23 Previous Rx's Medication Instructions Recorded Ibuprofen [Motrin] 800 mg PO Q8H PRN 7 Days #21 tab 07/03/23 Allergies Allergy/AdvReac Type Severity Reaction Status Date / Time amoxicillin Allergy Anaphylaxis Verified 07/03/23 12:38 Penicillins Allergy Anaphylaxis Verified 07/03/23 12:38 Review of Systems ROS Statement: Those systems with pertinent positive or pertinent negative responses have been documented in the HPI. Review of Systems: CONST: Denies fever EYES: Denies blurry vision ENT: Denies nasal congestion C/V: Denies Chest pain RESP: Denies shortness of breath GI: Denies abdominal pain : Denies dysuria SKIN: Denies rash. MSK: Denies joint pain. NEURO: Denies headache ROS Other: All systems not noted in ROS Statement are negative. Past Medical History Past Medical History: Diabetes Mellitus, Hypertension Additional Past Medical History / Comment(s): migraines History of Any Multi-Drug Resistant Organisms: None Reported Past Surgical History: Section Past Psychological History: Anxiety, Depression Smoking Status: Current every day smoker Past Alcohol Use History: Occasional Past Drug Use History: Marijuana General Exam - General Exam Comments Initial Comments: General: Appears in no acute distress. HEAD: Normal with no signs of head trauma. EYES: PERRLA, EOMI, conjunctiva normal, no discharge. ENT: Hearing grossly intact, normal oropharynx. RESPIRATORY: Clear breath sounds bilaterally. No wheezes, rales, or rhonchi. C/V: Regular rate and rhythm. S1 and S2 auscultated, no edema, peripheral pulses 2+ and intact throughout ABD: Abd is soft, nontender, nondistended EXT: Normal range of motion, no obvious deformity SKIN: No rashes or lesions observed on exposed skin. NEURO: Alert and oriented x 4. Limitations: no limitations Course Vital Signs 07/03/23 07/03/23 07/03/23 07:58 09:37 10:43 Temperature 98.6 F 98.7 F Pulse Rate 98 86 89 Respiratory 18 16 16 Rate Blood Pressure 125/90 108/68 120/82 O2 Sat by Pulse 98 97 93 L Oximetry 07/03/23 13:43 Temperature 98.3 F Pulse Rate 78 Respiratory 18 Rate Blood Pressure 120/80 O2 Sat by Pulse 98 Oximetry Medical Decision Making - Medical Decision Making Was pt. sent in by a medical professional or institution (, PA, LOSS PREVENTION LEAD, urgent care, hospital, or intermediate...) When possible be specific @ -No Did you speak to anyone other than the patient for history (EMS, parent, family, police, friend...)? What history was obtained from this source @ -No Did you review nursing and triage notes (agree or disagree)? Why? @ -I reviewed and agree with nursing and triage notes Were old charts reviewed (outside hosp., previous admission, EMS record, old EKG, old radiological studies, urgent care reports/EKG's, intermediate records)? Report findings @ -Old charts reviewed Differential Diagnosis (chest pain, altered mental status, abdominal pain women, abdominal pain men, vaginal bleeding, weakness, fever, dyspnea, syncope, headache, dizziness, GI bleed, back pain, seizure, CVA, palpatations, mental health, musculoskeletal)? @ -Differential Chest Pain: Stable Angina, Unstable Angina, STEMI, NSTEMI Aortic Dissection, Pneumothorax, Musculoskeletal, Esophageal Spasm GERD, Cholecystitis, Pancreatitis, Zoster, this is not meant to be an all-inclusive list. EKG interpreted by me (3pts min.). @ -As above X-rays interpreted by me (1pt min.). @ -Chest x-ray reveals no obvious acute cardio palmar process. CT interpreted by me (1pt min.). @ -CT chest reveals no evidence of pulmonary embolism. U/S interpreted by me (1pt. min.). @ -None done What testing was considered but not performed or refused? (CT, X-rays, U/S, labs)? Why? @ -None What meds were considered but not given or refused? Why? @ -None Did you discuss the management of the patient with other professionals (professionals i.e. , [facility], LOSS PREVENTION LEAD, lab, RT, psych nurse, social psychologist, rosin barrel filler, teacher, consular officer, egg caser)? Give summary @ -No Was smoking cessation discussed for >3mins.? @ -No Was critical care preformed (if so, how long)? @ -No Were there social determinants of health that impacted care today? How? (Homele ssness, low income, unemployed, alcoholism, drug addiction, transportation, low edu. Level, literacy, decrease access to med. care, senior living, rehab)? @ -No Was there de-escalation of care discussed even if they declined (Discuss DNR or withdrawal of care, Hospice)? DNR status @ -No What co-morbidities impacted this encounter? (DM, HTN, Smoking, COPD, CAD, Cancer, CVA, ARF, Chemo, Hep., AIDS, mental health diagnosis, sleep apnea, morbid obesity)? @ -None Was patient admitted / discharged? Hospital course, mention meds given and route, prescriptions, significant lab abnormalities, going to OR and other pertinent info. @ -Based on the patient's presentation and physical exam, presents with chest pain. We will obtain cardiac workup. This included screening for PE. Seems to be somewhat musculoskeletal in nature however difficult to assess as patient currently is basically asymptomatic. She'll be given a dose of Toradol empirically as well as a small fluid bolus. We will obtain chest x-ray, EKG, labs. Patient in agreement this plan. Vital signs are within acceptable limits. EKG showed no signs of acute ischemia.Patient's chest x-ray unremarkable. Labs are remarkable for elevated d-dimer of 1.78. Troponin undetectable. Magnesium slightly low at 1.5 which was replenished. I discussed results with the patient. Due to the elevated d-dimer I did recommend CT imaging. We will also obtain a 3 hour troponin. As patient would like to go home. She was in agreement this plan. CTPE negative for PE. Second troponin also undetectable. Patient remains asymptomatic. She'll be discharged home at this time. Strict return precautions discussed. Discussed the diagnosis likely related to chest wall pain or strain. Patient already follows up with a therapy manager. Heart scores low. I instructed the patient to follow up with their PCP in the next 1-3 days. I explained that the patient should return to the emergency department if they experience any worsening symptoms. Strict return precautions were discussed with the patient. The patient expressed understanding of these instructions. I answered all questions that the patient had. The patient was discharged home in [good] condition with their prescriptions and follow up information. Undiagnosed new problem with uncertain prognosis? @ -No Drug Therapy requiring intensive monitoring for toxicity (Heparin, Nitro, Insulin, Cardizem)? @ -No Were any procedures done? @ -No Diagnosis/symptom? @ -Chest wall pain, hypomagnesemia Acute, or Chronic, or Acute on Chronic? @ -Acute Uncomplicated (without systemic symptoms) or Complicated (systemic symptoms)? @ -Uncomplicated Side effects of treatment? @ -none Exacerbation, Progression, or Severe Exacerbation] @ -no Poses a threat to life or bodily function? @ -no - Lab Data Result diagrams: 07/03/23 08:31 07/03/23 08:31 Lab Results 07/03/23 07/03/23 07/03/23 Range/Units 08:31 08:31 08:31 WBC 8.7 (3.8-10.6) k/uL RBC 4.75 (3.80-5.40) m/uL Hgb 13.9 (11.4-16.0) gm/dL Hct 40.4 (34.0-46.0) % MCV 85.1 (80.0-100.0) fL MCH 29.2 (25.0-35.0) pg MCHC 34.3 (31.0-37.0) g/dL RDW 13.8 (11.5-15.5) % Plt Count 200 (150-450) k/uL MPV 9.2 Neutrophils % 79 % Lymphocytes % 12 % Monocytes % 5 % Eosinophils % 1 % Basophils % 1 % Neutrophils # 6.9 (1.3-7.7) k/uL Lymphocytes # 1.1 (1.0-4.8) k/uL Monocytes # 0.5 (0-1.0) k/uL Eosinophils # 0.1 (0-0.7) k/uL Basophils # 0.1 (0-0.2) k/uL PT (10.0-12.5) sec INR (<1.2) APTT (22.0-30.0) sec D-Dimer (<0.60) mg/L FEU Sodium 136 L (137-145) mmol/L Potassium 4.0 (3.5-5.1) mmol/L Chloride 104 (98-107) mmol/L Carbon Dioxide 23 (22-30) mmol/L Anion Gap 9 mmol/L BUN 11 (7-17) mg/dL Creatinine 0.61 (0.52-1.04) mg/dL Est GFR (CKD-EPI)AfAm >90 (>60 ml/min/1.73 sqM) Est GFR (CKD-EPI)NonAf >90 (>60 ml/min/1.73 sqM) Glucose 162 H (74-99) mg/dL Calcium 8.4 (8.4-10.2) mg/dL Magnesium 1.5 L (1.6-2.3) mg/dL Total Bilirubin 0.6 (0.2-1.3) mg/dL AST 25 (14-36) U/L ALT 31 (4-34) U/L Alkaline Phosphatase 88 (38-126) U/L Troponin I <0.012 (0.000-0.034) ng/mL NT-Pro-B Natriuret Pep 32 pg/mL Total Protein 6.3 (6.3-8.2) g/dL Albumin 3.7 (3.5-5.0) g/dL Lipase 69 (23-300) U/L 07/03/23 07/03/23 Range/Units 09:33 11:49 WBC (3.8-10.6) k/uL RBC (3.80-5.40) m/uL Hgb (11.4-16.0) gm/dL Hct (34.0-46.0) % MCV (80.0-100.0) fL MCH (25.0-35.0) pg MCHC (31.0-37.0) g/dL RDW (11.5-15.5) % Plt Count (150-450) k/uL MPV Neutrophils % % Lymphocytes % % Monocytes % % Eosinophils % % Basophils % % Neutrophils # (1.3-7.7) k/uL Lymphocytes # (1.0-4.8) k/uL Monocytes # (0-1.0) k/uL Eosinophils # (0-0.7) k/uL Basophils # (0-0.2) k/uL PT 10.4 (10.0-12.5) sec INR 0.9 (<1.2) APTT 22.0 (22.0-30.0) sec D-Dimer 1.78 H (<0.60) mg/L FEU Sodium (137-145) mmol/L Potassium (3.5-5.1) mmol/L Chloride (98-107) mmol/L Carbon Dioxide (22-30) mmol/L Anion Gap mmol/L BUN (7-17) mg/dL Creatinine (0.52-1.04) mg/dL Est GFR (CKD-EPI)AfAm (>60 ml/min/1.73 sqM) Est GFR (CKD-EPI)NonAf (>60 ml/min/1.73 sqM) Glucose (74-99) mg/dL Calcium (8.4-10.2) mg/dL Magnesium (1.6-2.3) mg/dL Total Bilirubin (0.2-1.3) mg/dL AST (14-36) U/L ALT (4-34) U/L Alkaline Phosphatase (38-126) U/L Troponin I <0.012 (0.000-0.034) ng/mL NT-Pro-B Natriuret Pep pg/mL Total Protein (6.3-8.2) g/dL Albumin (3.5-5.0) g/dL Lipase (23-300) U/L - EKG Data -: EKG Interpreted by Me EKG Comments: 12-lead Electrocardiogram Interpretation Note EKG was reviewed and interpreted by myself. 12-lead ECG performed at 0813 is interpreted by me as revealing normal sinus rhythm at a rate of 87 beats per minute. Burr is normal. CO interval is 131 ms, QRS duration is 80 ms, QTc is 401 ms.. There were no ST or T wave abnormalities to suggest myocardial is chemia or injury. R wave progression across the precordium was satisfactory. By my interpretation this EKG is non-diagnostic for acute ischemia. Disposition Clinical Impression: Chest wall pain Disposition: HOME SELF-CARE Condition: Good Instructions (If sedation given, give patient instructions): Chest Pain (ED) Prescriptions: Ibuprofen [Motrin] 800 mg PO Q8H PRN 7 Days #21 tab PRN Reason: Pain Is patient prescribed a controlled substance at d/c from ED?: No Referrals: Cindy Norwood [Primary Care Provider] - 1-2 days Time of Disposition: 12:48
[2023-07-03 08:49] LABS: Basophils # (A) 0.1 k/uL (0-0.2); Basophils % (A) 1 %; Eosinophils # (A) 0.1 k/uL (0-0.7); Eosinophils % (A) 1 %; HCT 40.4 % (34.0-46.0); HGB 13.9 gm/dL (11.4-16.0); Lymphocytes # (A) 1.1 k/uL (1.0-4.8); Lymphocytes % (A) 12 %; MCH 29.2 pg (25.0-35.0); MCHC 34.3 g/dL (31.0-37.0); MCV 85.1 fL (80.0-100.0); Mean Platelet Volume 9.2; Monocytes # (A) 0.5 k/uL (0-1.0); Monocytes % (A) 5 %; Neutrophils # (A) 6.9 k/uL (1.3-7.7); Neutrophils % (A) 79 %; Platelet Count 200 k/uL (150-450); RBC 4.75 m/uL (3.80-5.40); RDW 13.8 % (11.5-15.5); WBC 8.7 k/uL (3.8-10.6)
--- NOTE | 2023-07-03 09:05 | XR ---
EXAMINATION TYPE: XR chest 2V DATE OF EXAM: 07/03/2023 COMPARISON: 03/08/2021 TECHNIQUE: PA and lateral views submitted. HISTORY: Chest pain FINDINGS: The lungs are clear and there is no pneumothorax, pleural effusion, or focal pneumonia. Heart size normal and no overt failure. Osseous structures demonstrate hypertrophic and degenerative changes of the spine. IMPRESSION: 1. No acute process.
[2023-07-03 09:13] LABS: ALT 31 U/L (4-34); AST 25 U/L (14-36); African American GFR (CKD) >90 (>60 ml/min/1.73 sqM); Albumin 3.7 g/dL (3.5-5.0); Alkaline Phosphatase 88 U/L (38-126); Anion Gap 9 mmol/L; Blood Urea Nitrogen 11 mg/dL (7-17); Calcium 8.4 mg/dL (8.4-10.2); Carbon Dioxide 23 mmol/L (22-30); Chloride 104 mmol/L (98-107); Glucose 162 mg/dL (74-99); Lipase 69 U/L (23-300); Magnesium 1.5 mg/dL (1.6-2.3); Non-African American GFR(CKD) >90 (>60 ml/min/1.73 sqM); Sodium 136 mmol/L (137-145); Total Bilirubin 0.6 mg/dL (0.2-1.3); Total Protein 6.3 g/dL (6.3-8.2)
[2023-07-03 09:21] LABS: NT-Pro-B-Type Natriuretic Pept 32 pg/mL
[2023-07-03] MEDS ORDERED: MAGNESIUM SULFATE-D5W PMX 1 GM in DEXTROSE/WATER 1 100ML.BAG IVPB ONE (09:34)
[2023-07-03 09:58] LABS: INR 0.9 (<1.2); Prothrombin Time 10.4 sec (10.0-12.5)
--- NOTE | 2023-07-03 10:38 | CT ---
EXAMINATION TYPE: CT chest angio for PE DATE OF EXAM: 07/03/2023 COMPARISON: 02/26/2021 HISTORY: elevated d-dimer CT DLP: 700.7 mGycm CONTRAST: CT chest with contrast and 3D reconstruction with MIP imaging is performed with IV Contrast, patient injected with 100 mL of Isovue 370. Contrast-enhanced CT of the chest was performed through the course of the pulmonary arteries with brandi g and mediastinal window settings submitted. 3D reconstruction with MIP imaging was also performed. PULMONARY ARTERIES: The pulmonary arteries and their major tributaries are patent. I do not see remigio dence for sizable filling defect to suggest pulmonary embolic process. LUNGS: The lungs are clear and free of infiltrate. No evidence for atelectasis. No pulmonary nodule or mass is detected. No pleural effusion. MEDIASTINUM: Thoracic aorta is of normal caliber,however, evaluation is limited given timing of the contrast bolus. If there is concern for thoracic aortic pathology consider SAVANNA. Correlate clinicall y . The heart is not enlarged. No evidence for mediastinal mass. No mediastinal lymph nodes greater than 1cm. HILAR STRUCTURES: No evidence for mass. No hilar lymph nodes greater than 1 cm. UPPER ABDOMEN: No significant abnormality is seen. IMPRESSION: 1. No evidence for Pulmonary embolism at this time.
[2023-07-03 13:53] VITALS: BP 120/80; PULSE 78; RESP 18; TEMP 98.3
== END 2023-07-03 13:45 | disposition home or self-care (01) ==
LOC: EC 07:49
DX: R07.89 Other chest pain (principal); E11.9 Type 2 diabetes mellitus without complications; I10 Essential (primary) hypertension; F17.200 Nicotine dependence, unspecified, uncomplicated; F41.9 Anxiety disorder, unspecified; F32.A Depression, unspecified; F12.90 Cannabis use, unspecified, uncomplicated; Z79.84 Long term (current) use of oral hypoglycemic drugs; Z79.899 Other long term (current) drug therapy; Z88.0 Allergy status to penicillin
CPT/HCPCS: 36415; 93005; 85379; 83880; 80053; 83690; 83735; 84484; 85025; 85610; 85730; 71046; 71275; 99285; 96365; 96375; J3475; J1885; Q9967; 96374

== ENCOUNTER 2023-08-23 18:45 | Emergency (ER) | payer OTHER ==
[2023-08-23 19:03] VITALS: TEMP 98.4
--- NOTE | 2023-08-23 20:21 | ED ---
General Adult HPI - General Chief complaint: Skin/Abscess/Foreign Body Stated complaint: foot infection Time Seen by Provider: 08/23/23 19:47 Source: patient, RN notes reviewed Mode of arrival: ambulatory Limitations: no limitations - History of Present Illness Initial comments: 43-year-old female presents to the emergency department for evaluation of r edness of the left foot. Patient states that this has been there for around 2 weeks now. She does report that she has been on doxycycline and been utilizing topical hydrocortisone cream for this. She has not seen any relief. She is concerned that it is now a cellulitis that needs IV antibiotics. She denies recent fever, chills. Denies nausea, vomiting. - Related Data Home Medications Medication Instructions Recorded Confirmed HYDROcodone/APAP 10-325MG [Artesian 1 tab PO QID PRN 06/20/17 07/03/23 10-325] ARIPiprazole [Abilify] 2 mg PO HS 02/26/21 07/03/23 Cider Vinegar [Apple Cider Vinegar] 300 mg PO DAILY 02/26/21 07/03/23 Losartan Potassium 50 mg PO DAILY 02/26/21 07/03/23 Omeprazole 20 mg PO DAILY 02/26/21 07/03/23 buPROPion XL [Wellbutrin XL] 300 mg PO DAILY 02/26/21 07/03/23 hydroCHLOROthiazide [Hydrodiuril] 25 mg PO DAILY 02/26/21 07/03/23 Acetaminophen Tab [Tylenol Tab] 1,000 mg PO Q6H PRN 07/03/23 07/03/23 Ascorbic Acid [Vitamin C] 500 mg PO BID 07/03/23 07/03/23 Atorvastatin [Lipitor] 40 mg PO DAILY 07/03/23 07/03/23 Cholecalciferol [Vitamin D3 (25 25 mcg PO DAILY 07/03/23 07/03/23 Mcg = 1000 Iu)] Dextroamphetamine/Amphetamine 20 mg PO DAILY 07/03/23 07/03/23 [Adderall Xr 20 mg Capsule] Elderberry Fruit [Elderberry] 350 mg PO DAILY 07/03/23 07/03/23 Zinc Gluconate [Zinc] 50 mg PO DAILY 07/03/23 07/03/23 busPIRone HCL 15 mg PO BID 07/03/23 07/03/23 metFORMIN HCL ER [Glucophage XR] 500 mg PO DAILY 07/03/23 07/03/23 Previous Rx's Medication Instructions Recorded Ibuprofen [Motrin] 800 mg PO Q8H PRN 7 Days #21 tab 07/03/23 Ketoconazole [Ketoconazole 2%] 1 applic TOPICAL BID #30 gm 08/23/23 Triamcinolone Acetonide 1 applic TOPICAL BID #15 gm 08/23/23 [Triamcinolone Acetonide 0.025%] Allergies Allergy/AdvReac Type Severity Reaction Status Date / Time amoxicillin Allergy Anaphylaxis Verified 08/23/23 18:56 Penicillins Allergy Anaphylaxis Verified 08/23/23 18:56 Review of Systems ROS Statement: Those systems with pertinent positive or pertinent negative responses have been documented in the HPI. ROS Other: All systems not noted in ROS Statement are negative. Past Medical History Past Medical History: Diabetes Mellitus, Hypertension Additional Past Medical History / Comment(s): migraines History of Any Multi-Drug Resistant Organisms: None Reported Past Surgical History: Section Past Psychological History: Anxiety, Depression Smoking Status: Current every day smoker Past Alcohol Use History: Occasional Past Drug Use History: Marijuana General Exam Limitations: no limitations General appearance: alert, in no apparent distress Head exam: Present: atraumatic, normocephalic, normal inspection Eye exam: Present: normal appearance, PERRL, EOMI. Absent: scleral icterus, conjunctival injection, periorbital swelling ENT exam: Present: normal exam, mucous membranes moist Respiratory exam: Present: normal lung sounds bilaterally. Absent: respiratory distress, wheezes, rales, rhonchi, stridor Cardiovascular Exam: Present: regular rate, normal rhythm, normal heart sounds. Absent: systolic murmur, diastolic murmur, rubs, gallop, clicks Extremities exam: Present: full ROM, normal capillary refill, other (DP and PT pulses 2+, overlying erythema on the left dorsal aspect of the foot overlying the second through fourth metatarsals). Absent: tenderness Neurological exam: Present: alert, oriented X3 Psychiatric exam: Present: normal affect, normal mood Skin exam: Present: warm, dry, intact, rash (As described above). Absent: normal color Course Vital Signs 08/23/23 08/23/23 18:54 22:37 Temperature 98.4 F Pulse Rate 99 84 Respiratory 16 18 Rate Blood Pressure 128/79 134/86 O2 Sat by Pulse 97 99 Oximetry Medical Decision Making - Medical Decision Making Was pt. sent in by a medical professional or institution ([facility], PHOTOENGRAVING HELPER, urgent care, hospital, or shelter...) When possible be specific @ -No Did you speak to anyone other than the patient for history (EMS, parent, family, police, friend...)? What history was obtained from this source @ -No Did you review nursing and triage notes (agree or disagree)? Why? @ -I reviewed and agree with nursing and triage notes Were old charts reviewed (outside hosp., previous admission, EMS record, old EKG, old radiological studies, urgent care reports/EKG's, shelter records)? Report findings @ -No old charts were reviewed Differential Diagnosis (chest pain, altered mental status, abdominal pain women, abdominal pain men, vaginal bleeding, weakness, fever, dyspnea, syncope, headache, dizziness, GI bleed, back pain, seizure, CVA, palpatations, mental health, musculoskeletal)? @ -Cellulitis, reactive arthritis, fungal infection, this is not all inclusive EKG interpreted by me (3pts min.). @ -None X-rays interpreted by me (1pt min.). @ -X-ray of the foot shows no evidence of osteomyelitis CT interpreted by me (1pt min.). @ -None done U/S interpreted by me (1pt. min.). @ -None done What testing was considered but not performed or refused? (CT, X-rays, U/S, labs)? Why? @ -None What meds were considered but not given or refused? Why? @ -None Did you discuss the management of the patient with other professionals (professionals i.e. [facility], PHOTOENGRAVING HELPER, lab, RT, psych nurse, secondary social studies teacher, anesthesiology fellow, teacher, founder chairman and chief creative officer, pillowcase maker)? Give summary @ -No Was smoking cessation discussed for >3mins.? @ -No Was critical care preformed (if so, how long)? @ -No Were there social determinants of health that impacted care today? How? (Homelessness, low income, unemployed, alcoholism, drug addiction, transporta tion, low edu. Level, literacy, decrease access to med. care, usp, rehab)? @ -No Was there de-escalation of care discussed even if they declined (Discuss DNR or withdrawal of care, Hospice)? DNR status @ -No What co-morbidities impacted this encounter? (DM, HTN, Smoking, COPD, CAD, Cancer, CVA, ARF, Chemo, Hep., AIDS, mental health diagnosis, sleep apnea, morbid obesity)? @ -None Was patient admitted / discharged? Hospital course, mention meds given and route, prescriptions, significant lab abnormalities, going to OR and other pertinent info. @ -Discharge. Patient presented to the emergency department for evaluation of left foot redness. Laboratory studies obtained.CBC shows WBC 9.8, hemoglobin 13.4; normal coagulation studies.; CMP essentially unremarkable. Patient's blood glucose is 249. She is a new diabetic and has recently started taking medication for this. X-ray of the foot obtained which shows no evidence of osteomyelitis. Case was discussed with my attending, Dr. Carbajal who evaluated the patient and does not believe that the patient needs IV antibiotics at this time which was the patient's concern. The patient advised to continue her p.o. antibiotics and utilize antifungal cream and topical steroid. Advised to follow-up with her PCP. Patient understanding agreeable discharge plan. Patient stable at time of discharge. Undiagnosed new problem with uncertain prognosis? @ -No Drug Therapy requiring intensive monitoring for toxicity (Heparin, Nitro, Ins ulin, Cardizem)? @ -No Were any procedures done? @ -No Diagnosis/symptom? @ -Fungal infection of foot Acute, or Chronic, or Acute on Chronic? @ -Acute Uncomplicated (without systemic symptoms) or Complicated (systemic symptoms)? @ -Uncomplicated Side effects of treatment? @ -No Exacerbation, Progression, or Severe Exacerbation? @ -No Poses a threat to life or bodily function? How? (Chest pain, USA, SD, pneumonia, PE, COPD, DKA, ARF, appy, cholecystitis, CVA, Diverticulitis, Homicidal, Sofy cidal, threat to staff... and all critical care pts) @ -No - Lab Data Result diagrams: 08/23/23 20:05 08/23/23 20:05 Lab Results 08/23/23 08/23/23 08/23/23 Range/Units 20:05 20:05 21:17 WBC 9.8 (3.8-10.6) k/uL RBC 4.76 (3.80-5.40) m/uL Hgb 13.4 (11.4-16.0) gm/dL Hct 40.5 (34.0-46.0) % MCV 85.2 (80.0-100.0) fL MCH 28.2 (25.0-35.0) pg MCHC 33.1 (31.0-37.0) g/dL RDW 13.7 (11.5-15.5) % Plt Count 196 (150-450) k/uL MPV 9.7 Neutrophils % 71 % Lymphocytes % 20 % Monocytes % 5 % Eosinophils % 1 % Basophils % 1 % Neutrophils # 7.0 (1.3-7.7) k/uL Lymphocytes # 2.0 (1.0-4.8) k/uL Monocytes # 0.5 (0-1.0) k/uL Eosinophils # 0.1 (0-0.7) k/uL Basophils # 0.1 (0-0.2) k/uL PT 10.3 (10.0-12.5) sec INR 0.9 (<1.2) APTT 24.2 (22.0-30.0) sec Sodium 137 (137-145) mmol/L Potassium 4.4 (3.5-5.1) mmol/L Chloride 105 (98-107) mmol/L Carbon Dioxide 23 (22-30) mmol/L Anion Gap 9 mmol/L BUN 12 (7-17) mg/dL Creatinine 0.66 (0.52-1.04) mg/dL Est GFR (CKD-EPI)AfAm >90 (>60 ml/min/1.73 sqM) Est GFR (CKD-EPI)NonAf >90 (>60 ml/min/1.73 sqM) Glucose 249 H (74-99) mg/dL Calcium 9.2 (8.4-10.2) mg/dL Total Bilirubin 0.5 (0.2-1.3) mg/dL AST 23 (14-36) U/L ALT 26 (4-34) U/L Alkaline Phosphatase 79 (38-126) U/L Total Protein 6.8 (6.3-8.2) g/dL Albumin 4.0 (3.5-5.0) g/dL Disposition Clinical Impression: Fungal infection, Atopic dermatitis Disposition: HOME SELF-CARE Condition: Stable Instructions (If sedation given, give patient instructions): Antifungals (On the skin) Additional Instructions: Please follow up with your primary care provider. Return to the emergency department for new or worsening symptoms. Prescriptions: Ketoconazole [Ketoconazole 2%] 1 applic TOPICAL BID #30 gm Triamcinolone Acetonide [Triamcinolone Acetonide 0.025%] 1 applic TOPICAL BID #15 gm Is patient prescribed a controlled substance at d/c from ED?: No Referrals: Cindy Norwood [Primary Care Provider] - 1-2 days Amanda Ahn DPM [STAFF PHYSICIAN] - 1-2 days Levi Lam DPM [Doctor of Osteopathic Medicine] - 1-2 days
[2023-08-23] MEDS: KETOROLAC 15 MG/ML 1 ML VIAL IVP STA (20:31)
[2023-08-23 20:50] LABS: Basophils # (A) 0.1 k/uL (0-0.2); Basophils % (A) 1 %; Eosinophils # (A) 0.1 k/uL (0-0.7); Eosinophils % (A) 1 %; HCT 40.5 % (34.0-46.0); HGB 13.4 gm/dL (11.4-16.0); Lymphocytes % (A) 20 %; MCH 28.2 pg (25.0-35.0); MCHC 33.1 g/dL (31.0-37.0); MCV 85.2 fL (80.0-100.0); Mean Platelet Volume 9.7; Monocytes # (A) 0.5 k/uL (0-1.0); Monocytes % (A) 5 %; Neutrophils % (A) 71 %; Platelet Count 196 k/uL (150-450); RBC 4.76 m/uL (3.80-5.40); RDW 13.7 % (11.5-15.5); WBC 9.8 k/uL (3.8-10.6)
[2023-08-23 21:06] LABS: ALT 26 U/L (4-34); AST 23 U/L (14-36); African American GFR (CKD) >90 (>60 ml/min/1.73 sqM); Alkaline Phosphatase 79 U/L (38-126); Anion Gap 9 mmol/L; Blood Urea Nitrogen 12 mg/dL (7-17); Calcium 9.2 mg/dL (8.4-10.2); Carbon Dioxide 23 mmol/L (22-30); Chloride 105 mmol/L (98-107); Glucose 249 mg/dL (74-99); Non-African American GFR(CKD) >90 (>60 ml/min/1.73 sqM); Potassium 4.4 mmol/L (3.5-5.1); Sodium 137 mmol/L (137-145); Total Bilirubin 0.5 mg/dL (0.2-1.3); Total Protein 6.8 g/dL (6.3-8.2)
--- NOTE | 2023-08-23 21:46 | XR ---
EXAMINATION TYPE: XR foot complete LT DATE OF EXAM: 08/23/2023 9:15 PM CLINICAL INDICATION:Female, 43 years old with history of infxn; [facility] COMPARISON: None. TECHNIQUE: Three views portable left foot were obtained. FINDINGS: Osseous mineralization appears appropriate. There is no evidence of fracture lucency, dislocation, or osseous destructive process. Mild degenerative changes. Accessory ossicle or dystrophic calcificatio n in the lateral foot near the calcaneocuboid joint. Small dorsal and small to moderate plantar calca kati spurs. Soft tissues are unremarkable. If there is persistent clinical concern for osteomyelitis, further evaluation with MRI over 3 phase b one scan would be recommended. IMPRESSION: No radiographic evidence of osteomyelitis.
[2023-08-23 22:10] LABS: INR 0.9 (<1.2); Partial Thromboplastin Time 24.2 sec (22.0-30.0); Prothrombin Time 10.3 sec (10.0-12.5)
[2023-08-23 22:43] VITALS: BP 134/86; PULSE 84; RESP 18
== END 2023-08-23 22:38 | disposition home or self-care (01) ==
LOC: EC 18:45
DX: L20.9 Atopic dermatitis, unspecified (principal); I10 Essential (primary) hypertension; E11.9 Type 2 diabetes mellitus without complications; F32.A Depression, unspecified; F41.9 Anxiety disorder, unspecified; F12.90 Cannabis use, unspecified, uncomplicated; F17.200 Nicotine dependence, unspecified, uncomplicated; Z88.0 Allergy status to penicillin; Z79.899 Other long term (current) drug therapy; Z79.84 Long term (current) use of oral hypoglycemic drugs
CPT/HCPCS: 36415; 80053; 85025; 85610; 85730; 87040; 73630; 99284; 96374; J1885

== ENCOUNTER → 2024-02-06 | Outpatient (CLI) | payer OTHER ==
--- NOTE | 2024-02-09 04:02 | MR ---
EXAMINATION TYPE: MR shoulder RT wo con DATE OF EXAM: 02/06/2024 COMPARISON: Prior right shoulder MRI May 12, 2018 HISTORY: Right shoulder pain, decreased ROM. Bicipital tendinitis. TECHNIQUE: Multiplanar, multisequence imaging of the right shoulder is performed without contrast. FINDINGS: Rotator Cuff: There is now full-thickness retracted tear of the supraspinatus tendon with approximate ly 1.9 cm gap coronal image 14. There is increased signal and surrounding fluid in the infraspinatus tendon. Heterogeneous subscapularis tendon with surrounding fluid. Acromioclavicular Joint: Mild capsular hypertrophy. Type II downsloping acromion redemonstrated. Glenohumeral Joint: Small to moderate size joint effusion redemonstrated. No significant spurring. Labrum: The labrum appears grossly intact given limitation of non-arthrogram study. Biceps Tendon: The long head of biceps is in normal location within bicipital groove. Bone marrow signal: No focal abnormal marrow signal is appreciated. Other: No additional significant abnormality is appreciated. IMPRESSION: 1. Progression of supraspinatus tendon to a retracted full-thickness tear on current study. 2. Tendinosis of infraspinatus and subscapularis tendons. 3. No labral tear. No significant tear of the long head of biceps tendon.
== END | disposition home or self-care (01) ==
LOC: RADMRIMAIN 07:37
PROVIDERS: ATTEND Orthopaedic Surgery Hand Surgery
DX: M75.21 Bicipital tendinitis, right shoulder (principal); M67.813 Other specified disorders of tendon, right shoulder; M75.121 Complete rotator cuff tear or rupture of right shoulder, not specified as traumatic; M65.811 Other synovitis and tenosynovitis, right shoulder

== ENCOUNTER → 2024-03-29 | Outpatient (CLI) | payer OTHER ==
--- NOTE | 2024-03-29 12:26 | FL ---
EXAMINATION TYPE: FL barium swallow DATE OF EXAM: 03/29/2024 CLINICAL INDICATION: 44-year-old female R13.10, dysphagia, pills getting stuck, frequent vomiting for 2 to 3 months COMPARISON: None Total Fluoroscopy Time: 65 seconds Total DAP: 25 mGycm2 29 images obtained. FINDINGS: The swallowing mechanism is normal and hypopharyngeal anatomy is preserved. No abnormal thickening of the cricopharyngeus. The cervical and thoracic portions have a normal course and caliber and normal motility. The mucosa is normal and no persistent filling defect is encountered. No hiatal hernia is present. Gastroesophageal reflux could not be elicited during the course of the exam. IMPRESSION: Unremarkable esophagram.
== END | disposition home or self-care (01) ==
LOC: RADFLMAIN 08:21
PROVIDERS: ATTEND Family Medicine
DX: R13.10 Dysphagia, unspecified
CPT/HCPCS: 74220

== ENCOUNTER → 2024-04-16 | Outpatient (CLI) | payer OTHER ==
--- NOTE | 2024-04-18 11:49 | US ---
EXAMINATION TYPE: US thyroid st tissue head/neck DATE OF EXAM: 04/16/2024 COMPARISON: NONE CLINICAL INDICATION: Female, 44 years old with history of R13.10 DYSPHAGIA; GLAND SIZE: Right Lobe: 4.1 x 1.4 x 1.6 cm Overall Parenchyma: heterogeneous Left Lobe: 4.3 x 1.0 x 1.4 cm Overall Parenchyma: heterogeneous Isthmus Thickness: 0.3 cm NODULES RIGHT: # of nodules measured on right: 0 LEFT: # of nodules measured on left: 1 1. 1.3 X 0.7 x 1.4 cm, mid, solid or almost completely solid, hypoechoic nodule, which is wider richie n tall, with smooth margins, without echogenic foci. Prior size: no previous ISTHMUS: # of nodules measured in the isthmus: 0 Bilateral neck scanned, no evidence of lymphadenopathy. IMPRESSION: Moderately Suspicious: FNA if ? 1.5 cm; Follow if ? 1 cm at 1, 2, 3, and 5 y 2017 ACR TI-RADS LEVEL: TR4 *Highest TI-RADS level nodule reported [facility], , 04/18/2024 11:47 AM
== END | disposition home or self-care (01) ==
LOC: RADUSWWP 15:55
PROVIDERS: ATTEND Family Medicine
DX: R13.10 Dysphagia, unspecified (principal)
CPT/HCPCS: 76536

== ENCOUNTER → 2024-10-06 | Outpatient (CLI) | payer OTHER ==
--- NOTE | 2024-10-06 10:11 | MM ---
Reason for Exam: Clinical finding. Last mammogram was performed 1 year(s) and 1 month(s) ago. Indicated Problems: Pain of both sides (Focal) for 3 Month(s) : more on left and less than 3 months ago but still bothersome. Patient History: Menarche at age 13. First Full-Term at age 24. Patient has history of breast feeding. Maternal cousin had ovarian cancer, age 42. Risk Values: Anastasia 5 year model risk: 0.7%. NCI Lifetime model risk: 8.7%. Prior Study Comparison: 05/15/2022 Bilateral Screening Mammogram, Unknown. 09/10/2023 Bilateral Screening Mammogram, Unknown. Tissue Density: There are scattered areas of fibroglandular density. Findings: Analyzed By CAD. No suspicious new mass or distortion in either breast. Overall Assessment: Negative, BI-RAD 1 Management: Screening Mammogram of both breasts in 1 year. Manage patient's symptoms clinically.. Results were given to the patient verbally at the time of exam. Patient should continue monthly self-breast exams. A clinical breast exam by your physician is recommended on an annual basis. This exam should not preclude additional follow-up of suspicious palpable abnormalities. Note on Anastasia scores and lifetime risk: 1. A Anastasia score greater than 3% is considered moderate risk. If this is the case, consider specialist referral to assess eligibility for a risk reducing agent. 2. If overall lifetime risk for the development of breast cancer is 20% or higher, the patient may qualify for future screening with alternating mammogram and breast MRI. [facility], , 10/06/2024 9:54 AM. Electronically signed and approved by: Uday Monet M.D.
== END | disposition home or self-care (01) ==
LOC: RADMAMWWP 08:34
PROVIDERS: ATTEND Obstetrics & Gynecology
DX: N64.4 Mastodynia (principal); R92.323 Mammographic fibroglandular density, bilateral breasts
CPT/HCPCS: 77066; G0279; 77062